=== PATIENT | male | born 1985 | race Hispanic/Latino ===

== ENCOUNTER 2023-05-15 15:23 | Emergency (ER) | payer OTHER ==
--- OUTSIDE RECORDS SUMMARY | 2023-05-15 15:40 | XMS REPORT | Continuity of Care Document ---
:1985 Author Organization [facility] t Address [address] [facility] [address] [place] [id number] Care Team Providers Name Role [facility], [facility] Primary Care Physician Unavailable Danyell Ledesma MD Attending Clinician DANYELL LEDESMA Attending Clinician Unavailable DANYELL LEDESMA Attending Clinician Unavailable MARTIR WILLS Attending Clinician Unavailable Lab, Web Sleep Attending Clinician Unavailable Martir Wills MD Attending Clinician Doctor Unassigned, [place] Attending Clinician Unavailable ELLIOTT OCHOA Attending Clinician Unavailable Payers Payer Name Policy Type Policy Number Effective Date Expiration Date [facility] [id number] 2012 2023 00:00:00 00:00:00 Problems This patient has no known problems. Allergies, Adverse Reactions, Alerts Allergy Allergy Status Severity Reaction(s) Onset Inactive Treating Comm ents Source Name Type Date Date Clinician NO KNOWN Drug Active Univers ALLERGIE Class ity of S [facility] Social History Social Habit Start Date Stop Date Quantity Comments Source Gender identity Universit y [facility] Sexual orientation [facility] Exposure to 2022-10-01 2022-10-11 Not sure University of SARS-CoV-2 (event) 00:00:00 10:40:00 [facility] Tobacco use and 2021-11-21 2021-11-21 Smokeless [facility] exposure 00:00:00 00:00:00 tobacco non-user Hospital Alcohol intake 2021-11-21 2021-11-21 Current drinker [facility] 00:00:00 00:00:00 of alcohol Hospital (finding) History of Social 2021-11-21 2021-11-[address] function 00:00:00 00:00:00 Hospital Sex Assigned At [birth year] [facility] 00:00:00 [facility]:00:00 Hospital Smoking Status Start Date Stop Date Source Tobacco smoking consumption [facility] unknown Branch Never smoked [facility] Medications Ordered Filled Start Stop Current Ordering Indication Dosage Frequency Signature Comments Components Source Medication Medication Date Date Medication? Clinician (SIG) Name Name escitalopra Yes 10mg 1 tablet. U nivers m oxalate 9-11 ity of 10 mg 00:00: [place] tablet 00 Medical Branch escitalopra 0 Yes 10mg 1 tablet. U nivers m oxalate 9-11 ity of 10 mg 00:00: [place] tablet 00 Medical Branch escitalopra Yes 10mg 1 tablet. U nivers m oxalate 9-11 ity of 10 mg 00:00: [place] tablet 00 Medical Branch Diclofenac 0 Yes APPLY Univer s Sodium 1 % 3-28 MODERATE ity o f gel 00:00: AMOUNT TO THE SKIN Medical TWICE A Branch DAY FOR PAIN AND INFLAMMATI ON Diclofenac Yes APPLY Univer s Sodium 1 % 3-28 MODERATE ity o f gel 00:00: AMOUNT TO THE SKIN Medical TWICE A Branch DAY FOR PAIN AND INFLAMMATI ON Diclofenac 0 Yes APPLY Univer s Sodium 1 % 3-28 MODERATE ity o f gel 00:00: AMOUNT TO [place] THE SKIN Medical TWICE A Branch DAY FOR PAIN AND INFLAMMATI ON Diclofenac 0 Yes APPLY Univer s Sodium 1 % 3-28 MODERATE ity o f gel 00:00: AMOUNT TO [place] THE SKIN Medical TWICE A Branch DAY FOR PAIN AND INFLAMMATI ON Diclofenac 0 Yes APPLY Univer s Sodium 1 % 3-28 MODERATE ity o f gel 00:00: AMOUNT TO [place] THE SKIN Medical TWICE A Branch DAY FOR PAIN AND INFLAMMATI ON Diclofenac 0 Yes APPLY Univer s Sodium 1 % 3-28 MODERATE ity o f gel 00:00: AMOUNT TO THE SKIN Medical TWICE A Branch DAY FOR PAIN AND INFLAMMATI ON Diclofenac 2023-0 Yes APPLY Univer s Sodium 1 % 3-28 MODERATE ity o f gel 00:00: AMOUNT TO THE SKIN Medical TWICE A Branch DAY FOR PAIN AND INFLAMMATI ON Diclofenac 2023-0 Yes APPLY Univer s Sodium 1 % 3-28 MODERATE ity o f gel 00:00: AMOUNT TO THE SKIN Medical TWICE A Branch DAY FOR PAIN AND INFLAMMATI ON Diclofenac 3-0 Yes APPLY Univer s Sodium 1 % 3-28 MODERATE ity o f gel 00:00: AMOUNT TO THE SKIN Medical TWICE A Branch DAY FOR PAIN AND INFLAMMATI ON Diclofenac 3-0 Yes APPLY Univer s Sodium 1 % 3-28 MODERATE ity o f gel 00:00: AMOUNT TO [place] THE SKIN Medical TWICE A Branch DAY FOR PAIN AND INFLAMMATI ON Diclofenac 2023-0 Yes APPLY Univer s Sodium 1 % 3-28 MODERATE ity o f gel 00:00: AMOUNT TO [place] THE SKIN Medical TWICE A Branch DAY FOR PAIN AND INFLAMMATI ON Diclofenac 2023-0 Yes APPLY Univer s Sodium 1 % 3-28 MODERATE ity o f gel 00:00: AMOUNT TO [place] THE SKIN Medical TWICE A Branch DAY FOR PAIN AND INFLAMMATI ON Diclofenac 3-0 Yes APPLY Univer s Sodium 1 % 3-28 MODERATE ity o f gel 00:00: AMOUNT TO [place] THE SKIN Medical TWICE A Branch DAY FOR PAIN AND INFLAMMATI ON Diclofenac 2023-0 Yes APPLY Univer s Sodium 1 % 3-28 MODERATE ity o f gel 00:00: AMOUNT TO [place] THE SKIN Medical TWICE A Branch DAY FOR PAIN AND INFLAMMATI ON Diclofenac 2023-0 Yes APPLY Univer s Sodium 1 % 3-28 MODERATE ity o f gel 00:00: AMOUNT TO [place] THE SKIN Medical TWICE A Branch DAY FOR PAIN AND INFLAMMATI ON Diclofenac 2023-0 Yes APPLY Univer s Sodium 1 % 3-28 MODERATE ity o f gel 00:00: AMOUNT TO [place] THE SKIN Medical TWICE A Branch DAY FOR PAIN AND INFLAMMATI ON Diclofenac 2023-0 Yes APPLY Univer s Sodium 1 % 3-28 MODERATE ity o f gel 00:00: AMOUNT TO [place] THE SKIN Medical TWICE A Branch DAY FOR PAIN AND INFLAMMATI ON vitamin 2023-0 Yes 250ug 1 tablet. Univ ers B-12 250 3-23 ity of mcg tablet 00:00: [place] 00 Medical Branch Cholecalcif 2023-0 Yes 50ug 50 mcg. Uni vers ina, 3-23 ity of Vitamin D3, 00:00: [place] 50 mcg 00 Medical (2,000 Branch unit) tablet hydrOXYzine 2023-0 Yes 25mg 1 tablet. U nivers 25 mg 3-23 ity of tablet 00:00: [place] 00 Medical Branch vitamin 2023-0 Yes 250ug 1 tablet. [facility] ers B-12 250 3-23 ity of mcg tablet 00:00: [place] 00 Medical Branch Cholecalcif 2023-0 Yes 50ug 50 mcg. Uni vers ina, 3-23 ity of Vitamin D3, 00:00: [place] 50 mcg 00 Medical (2,000 Branch unit) tablet hydrOXYzine 2023-0 Yes 25mg 1 tablet. U nivers 25 mg 3-23 ity of tablet 00:00: [place] 00 Medical Branch vitamin 2023-0 Yes 250ug 1 tablet. [facility] B-12 250 3-23 ity of mcg tablet 00:00: [place] 00 Medical Branch Cholecalcif 2023-0 Yes 50ug 50 mcg. Uni vers ina, 3-23 ity of Vitamin D3, 00:00: [place] 50 mcg 00 Medical (2,000 Branch unit) tablet hydrOXYzine 2023-0 Yes 25mg 1 tablet. U nivers 25 mg 3-23 ity of tablet 00:00: [place] 00 Medical Branch vitamin 2023-0 Yes 250ug 1 tablet. [facility] ers B-12 250 3-23 ity of mcg tablet 00:00: [place] 00 Medical Branch Cholecalcif 2023-0 Yes 50ug 50 mcg. Uni vers ina, 3-23 ity of Vitamin D3, 00:00: [place] 50 mcg 00 Medical (2,000 Branch unit) tablet hydrOXYzine 2023-0 Yes 25mg 1 tablet. U nivers 25 mg 3-23 ity of tablet 00:00: [place] 00 Medical Branch vitamin 2023-0 Yes 250ug 1 tablet. [facility] ers B-12 250 3-23 ity of mcg tablet 00:00: [place] 00 Medical Branch Cholecalcif 2023-0 Yes 50ug 50 mcg. Uni vers ina, 3-23 ity of Vitamin D3, 00:00: [place] 50 mcg 00 Medical (2,000 Branch unit) tablet Cholecalcif 2023-0 Yes 50ug 50 mcg. Uni vers ina, 3-23 ity of Vitamin D3, 00:00: [place] 50 mcg 00 Medical (2,000 Branch unit) tablet hydrOXYzine 2023-0 Yes 25mg 1 tablet. U nivers 25 mg 3-23 ity of tablet 00:00: [place] 00 Medical Branch hydrOXYzine 2023-0 Yes 25mg 1 tablet. U nivers 25 mg 3-23 ity of tablet 00:00: [place] 00 Medical Branch vitamin 2023-0 Yes 250ug 1 tablet. [facility] ers B-12 250 3-23 ity of mcg tablet 00:00: [place] 00 Medical Branch Cholecalcif 2023-0 Yes 50ug 50 mcg. Uni vers ina, 3-23 ity of Vitamin D3, 00:00: [place] 50 mcg 00 Medical (2,000 Branch unit) tablet hydrOXYzine 2023-0 Yes 25mg 1 tablet. U nivers 25 mg 3-23 ity of tablet 00:00: [place] 00 Medical Branch vitamin 2023-0 Yes 250ug 1 tablet. [facility] ers B-12 250 3-23 ity of mcg tablet 00:00: [place] 00 Medical Branch Cholecalcif 2023-0 Yes 50ug 50 mcg. Uni vers ina, 3-23 ity of Vitamin D3, 00:00: [place] 50 mcg 00 Medical (2,000 Branch unit) tablet hydrOXYzine 2023-0 Yes 25mg 1 tablet. U nivers 25 mg 3-23 ity of tablet 00:00: [place] 00 Medical Branch vitamin 2023-0 Yes 250ug 1 tablet. [facility] ers B-12 250 3-23 ity of mcg tablet 00:00: [place] 00 Medical Branch vitamin 2023-0 Yes 250ug 1 tablet. Univ ers B-12 250 3-23 ity of mcg tablet 00:00: [place] 00 Medical Branch Cholecalcif 2023-0 Yes 50ug 50 mcg. Uni vers ina, 3-23 ity of Vitamin D3, 00:00: [place] 50 mcg 00 Medical (2,000 Branch unit) tablet hydrOXYzine 2023-0 Yes 25mg 1 tablet. U nivers 25 mg 3-23 ity of tablet 00:00: [place] 00 Medical Branch vitamin 2023-0 Yes 250ug 1 tablet. Univ ers B-12 250 3-23 ity of mcg tablet 00:00: [place] 00 Medical Branch Cholecalcif 2023-0 Yes 50ug 50 mcg. Uni vers ina, 3-23 ity of Vitamin D3, 00:00: [place] 50 mcg 00 Medical (2,000 Branch unit) tablet hydrOXYzine 2023-0 Yes 25mg 1 tablet. U nivers 25 mg 3-23 ity of tablet 00:00: [place] 00 Medical Branch vitamin 2023-0 Yes 250ug 1 tablet. Univ ers B-12 250 3-23 ity of mcg tablet 00:00: [place] 00 Medical Branch Cholecalcif 2023-0 Yes 50ug 50 mcg. Uni vers ina, 3-23 ity of Vitamin D3, 00:00: [place] 50 mcg 00 Medical (2,000 Branch unit) tablet hydrOXYzine 2023-0 Yes 25mg 1 tablet. U nivers 25 mg 3-23 ity of tablet 00:00: [place] 00 Medical Branch vitamin 2023-0 Yes 250ug 1 tablet. Univ ers B-12 250 3-23 ity of mcg tablet 00:00: [place] 00 Medical Branch Cholecalcif 2023-0 Yes 50ug 50 mcg. Uni vers ina, 3-23 ity of Vitamin D3, 00:00: [place] 50 mcg 00 Medical (2,000 Branch unit) tablet hydrOXYzine 2023-0 Yes 25mg 1 tablet. U nivers 25 mg 3-23 ity of tablet 00:00: [place] 00 Medical Branch vitamin 2023-0 Yes 250ug 1 tablet. Univ ers B-12 250 3-23 ity of mcg tablet 00:00: [place] 00 Medical Branch Cholecalcif 2023-0 Yes 50ug 50 mcg. Uni vers ina, 3-23 ity of Vitamin D3, 00:00: [place] 50 mcg 00 Medical (2,000 Branch unit) tablet hydrOXYzine 2023-0 Yes 25mg 1 tablet. U nivers 25 mg 3-23 ity of tablet 00:00: [place] 00 Medical Branch vitamin 2023-0 Yes 250ug 1 tablet. Univ ers B-12 250 3-23 ity of mcg tablet 00:00: [place] 00 Medical Branch Cholecalcif 2023-0 Yes 50ug 50 mcg. Uni vers ina, 3-23 ity of Vitamin D3, 00:00: [place] 50 mcg 00 Medical (2,000 Branch unit) tablet hydrOXYzine 2023-0 Yes 25mg 1 tablet. U nivers 25 mg 3-23 ity of tablet 00:00: [place] 00 Medical Branch vitamin 2023-0 Yes 250ug 1 tablet. [facility] ers B-12 250 3-23 ity of mcg tablet 00:00: [place] 00 Medical Branch Cholecalcif 2023-0 Yes 50ug 50 mcg. Uni vers ina, 3-23 ity of Vitamin D3, 00:00: [place] 50 mcg 00 Medical (2,000 Branch unit) tablet hydrOXYzine 2023-0 Yes 25mg 1 tablet. U nivers 25 mg 3-23 ity of tablet 00:00: [place] 00 Medical Branch vitamin 2023-0 Yes 250ug 1 tablet. [facility] ers B-12 250 3-23 ity of mcg tablet 00:00: [place] 00 Medical Branch Cholecalcif 2023-0 Yes 50ug 50 mcg. Uni vers ina, 3-23 ity of Vitamin D3, 00:00: [place] 50 mcg 00 Medical (2,000 Branch unit) tablet hydrOXYzine 2023-0 Yes 25mg 1 tablet. U nivers 25 mg 3-23 ity of tablet 00:00: [place] 00 Medical Branch vitamin 2023-0 Yes 250ug 1 tablet. [facility] ers B-12 250 3-23 ity of mcg tablet 00:00: [place] 00 Medical Branch Cholecalcif 2023-0 Yes 50ug 50 mcg. Uni vers ina, 3-23 ity of Vitamin D3, 00:00: [place] 50 mcg 00 Medical (2,000 Branch unit) tablet hydrOXYzine 2023-0 Yes 25mg 1 tablet. U nivers 25 mg 3-23 ity of tablet 00:00: [place] 00 Medical Branch ergocalcife 2023-0 Yes 1250ug 1,250 mcg. [facility] rol, 2- ity of vitamin d2, 00:00: [place] 1,250 mcg 00 Medical (50,000 Branch unit) capsule ergocalcife 2023-0 Yes 1250ug 1,250 mcg. [facility] rol, 2- ity of vitamin d2, 00:00: [place] 1,250 mcg 00 Medical (50,000 Branch unit) capsule ergocalcife 2023-0 Yes 1250ug 1,250 mcg. [facility] rol, 2- ity of vitamin d2, 00:00: [place] 1,250 mcg 00 Medical (50,000 Branch unit) capsule ergocalcife 2023-0 Yes 1250ug 1,250 mcg. Univers [facility], 2- ity of vitamin d2, 00:00: [place] 1,250 mcg 00 Medical (50,000 Branch unit) capsule ergocalcife 2023-0 Yes 1250ug 1,250 mcg. Univers rol, 2- ity of vitamin d2, 00:00: [place] 1,250 mcg 00 Medical (50,000 Branch unit) capsule ergocalcife 2023-0 Yes 1250ug 1,250 mcg. Univers rol, 2- ity of vitamin d2, 00:00: [place] 1,250 mcg 00 Medical (50,000 Branch unit) capsule ergocalcife 2023-0 Yes 1250ug 1,250 mcg. [facility], 2 ity of vitamin d2, 00:00: [place] 1,250 mcg 00 Medical (50,000 Branch unit) capsule ergocalcife 2023-0 Yes 1250ug 1,250 mcg. [facility], 2 ity of vitamin d2, 00:00: [place] 1,250 mcg 00 Medical (50,000 Branch unit) capsule ergocalcife 2023-0 Yes 1250ug 1,250 mcg. [facility], 2 ity of vitamin d2, 00:00: [place] 1,250 mcg 00 Medical (50,000 Branch unit) capsule ergocalcife 2023-0 Yes 1250ug 1,250 mcg. [facility], 2 ity of vitamin d2, 00:00: [place] 1,250 mcg 00 Medical (50,000 Branch unit) capsule ergocalcife 2023-0 Yes 1250ug 1,250 mcg. [facility], 2 ity of vitamin d2, 00:00: [place] 1,250 mcg 00 Medical (50,000 Branch unit) capsule ergocalcife 2023-0 Yes 1250ug 1,250 mcg. [facility], 2- ity of vitamin d2, 00:00: [place] 1,250 mcg 00 Medical (50,000 Branch unit) capsule ergocalcife 2023-0 Yes 1250ug 1,250 mcg. [facility], 2- ity of vitamin d2, 00:00: [place] 1,250 mcg 00 Medical (50,000 Branch unit) capsule ergocalcife 2023-0 Yes 1250ug 1,250 mcg. [facility], 08-10 ity of vitamin d2, 00:00: [place] 1,250 mcg 00 Medical (50,000 Branch unit) capsule ergocalcife 3-0 Yes 1250ug 1,250 mcg. [facility], 08-10 ity of vitamin d2, 00:00: [place] 1,250 mcg 00 Medical (50,000 Branch unit) capsule ergocalcife 3-0 Yes 1250ug 1,250 mcg. [facility], 08-10 ity of vitamin d2, 00:00: [place] 1,250 mcg 00 Medical (50,000 Branch unit) capsule ergocalcife 3-0 Yes 1250ug 1,250 mcg. [facility], 08-10 ity of vitamin d2, 00:00: [place] 1,250 mcg 00 Medical (50,000 Branch unit) capsule Vital Signs Vital Name Observation Time Observation Value Comments Source Systolic blood 2023-04-11 18:23:00 127 mm[Hg] Univer [facility]ity of [facility] Diastolic blood 2023-04-11 18:23:00 87 mm[Hg] [facility] 2023-04-11 18:16:00 93 /min [facility] Body temperature 2023-04-11 18:16:00 36.89 Trish [facility] Respiratory rate 2023-04-11 18:16:00 17 /min [facility] Body height 2023-04-11 18:16:00 180.3 cm [facility] Body weight 2023-04-11 18:16:00 107.548 kg [facility] BMI 2023-04-11 18:16:00 33.07 kg/m2 [facility] Oxygen saturation in 2023-04-11 18:16:00 97 /min [facility] Arterial blood by [facility] Pulse oximetry [place] Systolic blood 2023-02-07 18:21:00 134 mm[Hg] Univer sity of [facility] Diastolic blood 2023-02-07 18:21:00 94 mm[Hg] Unive rsity [facility] [place] [facility] Heart rate 2023-02-07 18:15:00 79 /min [facility] Body temperature 2023-02-07 18:15:00 36.72 Trish Univ [facility] [place] [facility] Respiratory rate 2023-02-07 18:15:00 17 /min Univ ers[facility] [place] [facility] Body height 2023-02-07 18:15:00 180.3 cm [facility] [place] [facility] Body weight 2023-02-07 18:15:00 108.5 kg [facility] [place] [facility] BMI 2023-02-07 18:15:00 33.36 kg/m2 [facility] [place] [facility] Oxygen saturation in 2023-02-07 18:15:00 97 /min University of Arterial blood by [facility] Pulse oximetry Branch Systolic blood 2023-01-19 16:10:00 124 mm[Hg] Univer sity of pressure [place] [facility] Diastolic blood 2023-01-19 16:10:00 87 mm[Hg] Unive rsity of pressure [place] [facility] Heart rate 2023-01-19 16:10:00 94 /min [facility] [place] [facility] Body temperature 2023-01-19 16:06:00 37.11 Trish Univ ers[facility] [place] [facility] Respiratory rate 2023-01-19 16:06:00 18 /min Univ [facility] [place] [facility] Body height 2023-01-19 16:06:00 180.3 cm [facility] [place] [facility] Body weight 2023-01-19 16:06:00 109.408 kg [facility] [place] [facility] BMI 2023-01-19 16:06:00 33.64 kg/m2 [facility] [place] [facility] Oxygen saturation in 2023-01-19 16:06:00 96 /min University of Arterial blood by [facility] Pulse oximetry Branch Systolic blood 2022-10-11 15:51:00 132 mm[Hg] Univer sity of pressure [place] [facility] Diastolic blood 2022-10-11 15:51:00 91 mm[Hg] Unive rsity of pressure [place] [facility] Heart rate 2022-10-11 15:51:00 86 /min [facility] [place] [facility] Body temperature 2022-10-11 15:44:00 36.83 Trish [facility] [place] [facility] Respiratory rate 2022-10-11 15:44:00 17 /min [facility] [place] [facility] Body height 2022-10-11 15:44:00 180.3 cm [facility] Body weight 2022-10-11 15:44:00 108.274 kg [facility] BMI 2022-10-11 15:44:00 33.29 kg/m2 [facility] Oxygen saturation in 2022-10-11 15:44:00 95 /min [facility] blood by [facility] Pulse oximetry Branch Procedures Procedure Date / Time Performing Clinician Source Performed SLEEP LAB RESULTS 2023-03-20 05:01:00 Danyell Ledesma [facility] SLEEP LAB RESULTS 2023-01-23 05:01:[address] [facility] SLEEP LAB RESULTS 2022-12-29 05:01:00 [facility] SLEEP STUDY DATA REPORT 2022-12-29 05:01:00 Doctor Unassigned, N o [facility] AUTHORIZATION FOR 2022-11-14 05:01:00 Doctor Unassigned, No [facility] ASSIGNMENT OF BENEFITS 2022-10-11 15:41:08 Doctor Unassigned, No [facility] Encounters Start End Encounter Admission Attending Care Care Encounter Source Date/Time Date/Time Type Type Clinicians Facility Department ID 2023-05-17 2023-05-[address] [facility] [id number] Univers 10:00:00 10:00:00 ity [facility] 2023-04-11 2023-04-11 Office Callie MIFRANDY [id number] Univers 13:30:00 14:00:00 Visit Danyell Dumont MULTISPEC [id number] itponce [facility] [id number] [facility] [phone] Li joiner AND REGINAL[facility] 0[facility] 2023-04-11 2023-04-11 Outpatient [address] DANYELL LEDESMA [facility] [id number] Univers 13:30:00 13:30:00 DANYELL LEDESMA [facility] 2023-03-20 2023-03-21 [id number] Univers 20:00:00 07:46:35 MARTIR castellanos [facility] 2023-03-20 2023-03-20 [facility], Web Sleep [facility] [id number]. [id number] Univers 20:00:00 22:30:00 Visit Martir Wills CLEAR [id number] ity [id number] [id number] Me dical Y [address] [place] 2023-03-20 2023-03-20 [facility] [id number] Univers 00:00:00 00:00:00 Only Strahil T [place] [id number] [id number] [id number] Pa dical NAL 5 [facility] 2023-02-07 2023-02-07 Office Callie [facility] [id number] Univers 13:30:00 14:00:00 Visit Danyell Dumont MULTISPEC [id number] [id number] [phone] Li Salguero [address] [place] [facility] 2023-02-07 2023-02-07 Outpatient R DANYELL LEDESMA [facility] [id number] Univers 13:30:00 13:30:00 DANYELL LEDESMA itponce [facility] 2023-01-23 2023-01-23 Tariff Counsel Lab, Web Sleep [facility] 1.2.840. [id number] Univers 11:30:00 11:30:00 Visit Martir Wills CLEAR [id number] [id number] [id number] Pa dical Y [address] [place] 2023-01-23 2023-01-[address] [facility] [id number] Univers 11:30:00 11:09:44 MARTIR castellanos [facility] 2023-01-23 2023-01-23 [facility] [id number] Univers 00:00:00 00:00:00 Only Strahil T [place] [id number] it[id number] [id number] Pa dical NAL 085 [facility] 2023-01-19 2023-01-19 Office Callie [facility] [id number] Univers 11:00:00 11:30:00 Visit Danyell Dumont MULTISPEC [id number] [id number] [id number] Li joiner [employer]GINAL[employer] [address] [place] [facility] 2023-01-19 2023-01-19 Outpatient R DANYELL LEDES[facility] [id number] Univers 11:00:00 11:00:00 DANYELL LEDESMA [facility] 2022-12-29 2022-12-[address] [facility] [id number] Univers 20:00:00 07:24:53 MARTIR castellanos [facility] 2022-12-29 2022-12-29 Tariff Counsel Lab, Web Sleep [facility] 1.2.840. 114 [id number] Univers 20:00:00 22:30:00 Visit Martir Wills [id number] [id number] [id number] Pa dical Y 193 Branch 2022-12-29 2022-12-29 Orders Callie [facility] [id number] Univers 00:00:00 00:00:00 Only Strahil T [place] [id number] [id number] [id number] Pa dical NAL 5 [facility] 2022-11-14 2022-11-14 Orders Doctor LAIRD [id number] Univers 00:00:00 00:00:00 Only Unassigned, BERNADET[place] [id number] ity of [place] [facility] [id number] Jerzy as [id number] [facility] 009 Branch 2022-10-11 2022-10-11 Office Callie [facility] [id number] Univers 11:00:00 11:30:00 Visit Danyell REESE [id number] [id number] [id number] [facility] AND REGINALDO 085 Branch [facility] 2022-10-11 2022-10-11 Outpatient R DANYELL LEDES[facility] [id number] Univers 11:00:00 11:16:28 DANYELL LEDESMA ity of [facility] 2022-10-11 2022-10-11 Orders Doctor SISI [id number] [id number] Univers 00:00:00 00:00:00 Only Unassigned, [place] [id number] ity of [place] [facility] [id number] Jerzy as [phone] [place] [address] Branch 2021-11-21 2021-11-21 Emergency [facility] [id number] [place] 00:00:00 00:00:[address] Results This patient has no known results.
[2023-05-15 16:21] LABS: Hematocrit 45.6 % (39.6-49.0); MCV 91.2 fL (80-100); MPV 7.7 fL (7.6-11.3); Platelets 296 thou/uL (152-406)
[2023-05-15 16:34] LABS: Potassium 4.2 mEq/L (3.5-5.1)
--- NOTE | 2023-05-15 17:19 | RAD REPORT ---
EXAM DESCRIPTION: CT - Abdomen Pelvis W Contrast - 05/15/2023 4:03 pm CLINICAL HISTORY: BLUNT TRAUMA COMPARISON: No comparisons TECHNIQUE: Thin cut axial CT imaging of the abdomen and pelvis was performed following intravenous a dministration of 100 mL Isovue 300. Multiplanar reformats were generated and reviewed. All CT scans are performed using dose optimization technique as appropriate and may include automated exposure control or mA/KV adjustment according to patient size. FINDINGS: No suspicious findings in the lung bases. The liver shows diffuse parenchymal hypoattenuation suggesting steatosis. Adrenal glands, spleen, and pancreas show no suspicious findings. Gallbladder and biliary tree are also without suspicious findi ng. Symmetric renal function is seen with no hydronephrosis or suspicious renal mass. Exophytic left lowe r pole 2.7 cm fluid density cyst. No dilated bowel loops or bowel wall thickening. No free air, free fluid or inflammatory stranding. N o hernia, mass or bulky lymphadenopathy. The urinary bladder is without significant finding. No suspicious bony findings. Moderate soft tissue swelling and subcutaneous fat stranding along the left flank. Small hyperdense o void hematoma just overlying the lateral abdominal wall muscles, measuring up to 1.5 cm. IMPRESSION: Soft tissue contusion with a 1.5 cm deep subcutaneous hematoma along the left flank. No acute intra-abdominal process. Diffuse hepatic steatosis.
--- NOTE | 2023-05-15 17:23 | ER ---
Nurse's Notes [facility] Name: Anthony Funez Age: 37 yrs Sex: Male : 1985 Arrival Date: 05/15/2023 Time: 15:23 Bed 12 Private MD: Diagnosis: Abdominal contusion Presentation: 05/15 15:47 Chief complaint: Patient states: last i fell off a stoop, about 8 ft, fell on iw left side , it's extremely bruised and there;s pain , it feels weird when i urinate. 15:47 Acuity: GLENN 3 iw 15:47 Method Of Arrival: Ambulatory iw 15:48 Coronavirus screen: At this time, the client does not indicate any symptoms associated iw with coronavirus-19. Ebola Screen: Patient negative for fever greater than or equal to 101.5 degrees Fahrenheit, and additional compatible Ebola Virus Disease symptoms Patient denies exposure to infectious person. Patient denies travel to an Ebola-affected area in the 21 days before illness onset. No symptoms or risks identified at this time. Initial Sepsis Screen: Does the patient meet any 2 criteria? No. Patient's initial sepsis screen is negative. Does the patient have a suspected source of infection? No. Patient's initial sepsis screen is negative. Risk Assessment: Do you want to hurt yourself or someone else? Patient reports no desire to harm self or others. Onset of symptoms. Historical: - Allergies: 15:48 No Known Allergies; iw Screenin:20 [facility] ED Fall Risk Assessment (Adult) History of falling in the last 3 months, kc6 including since admission Yes- single mechanical fall (1 pt) Confusion or Disorientation No (0 pts) Intoxicated or Sedated No (0 pts) Impaired Gait No (0 pts) Mobility Assist Device Used No (0 pt) Altered Elimination No (0 pt) Score/Fall Risk Level 0 - 2 = Low Risk. Abuse screen: Denies threats or abuse. Denies injuries from another. Nutritional screening: No deficits noted. Tuberculosis screening: No symptoms or risk factors identified. Assessment: 17:00 General: Appears in no apparent distress. comfortable, Behavior is calm, cooperative, kc6 appropriate for age. Pain: Complains of pain in posterior aspect of left lateral abdomen. Neuro: Level of Consciousness is awake, alert, obeys commands, Oriented to person, place, time, situation, Appropriate for age. Cardiovascular: Capillary refill < 3 seconds. Respiratory: Airway is patent Trachea midline Respiratory effort is even, unlabored, Respiratory pattern is regular, symmetrical. Derm: Skin is intact, is healthy with good turgor, Skin is pink, warm \T\ dry. Bruising that is dark purple, on posterior aspect of left lateral abdomen. Vital Signs: 15:48 BP 144 / 108; Pulse 102; Resp 16; Temp 98.2; Pulse Ox 100% on R/A; Weight 107.95 kg; iw Height 5 ft. 11 in. ; Pain 8/10; 15:48 Body Mass Index 33.19 (107.95 kg, 180.34 cm) iw 15:48 Pain Scale: Adult iw ED Course: 15:26 Patient arrived in ED. mg5 15:28 Chastity Santos FNP [facility]. jh7 15:28 Rboert Tafoya MD is Attending Physician. 7 15:48 Triage completed. iw 15:49 Arm band placed on. iw 15:59 CBC w/o diff Sent. iw 15:59 BMP Sent. iw 16:05 CT Abd/Pelvis - IV Contrast Only In Process Unspecified. EDMS 17:20 Patient has correct armband on for positive identification. Bed in low position. Call kc6 light in reach. Side rails up X 1. Client placed on continuous cardiac and pulse oximetry monitoring. NIBP monitoring applied. 17:27 Urinalysis w/ reflexes Sent. kc6 17:49 No provider procedures requiring assistance completed. IV discontinued, intact, kc6 bleeding controlled, No redness/swelling at site. Pressure dressing applied. Administered Medications: 17:27 Drug: Valentine PO 10 mg-325 mg 1 tabs PO once Route: PO; kc6 17:43 Follow up: Response: No adverse reaction iw Medication: 17:49 VIS not applicable for this client. kc6 Outcome: 17:22 Discharge ordered by . 7 17:49 Discharged to home ambulatory, kc6 17:49 Condition: good 17:49 Discharge instructions given to patient, Instructed on discharge instructions, follow up and referral plans. medication usage, Demonstrated understanding of instructions, follow-up care, medications, Prescriptions given X 1, 17:50 Patient left the ED. kc6 Signatures: Dispatcher [employer] EDMS Winnie Avery, RN RN iw Chastity Santos, ROOTER OPERATOR ROOTER OPERATOR jh7 Laura Kumar RN RN kc6 Meghana Rodriguez mg5
--- NOTE | 2023-05-15 17:23 | EDPHYS ---
Physician Documentation [facility] Name: Anthony Funez Age: 37 yrs Sex: Male : 1985 Arrival Date: 05/15/2023 Time: 15:23 Bed 12 Private MD: ED Physician Robert Tafoya HPI: 05/15 15:48 This 37 yrs old Male presents to ER via Ambulatory with complaints of Fall jh7 Injury, Side Pain. 15:48 Details of fall: The patient fell from a height, from a ladder, approximately 8 feet. jh7 Onset: The symptoms/episode began/occurred 4 day(s) ago. Associated injuries: The patient sustained injury to the abdomen, specifically the posterior aspect of left lateral abdomen, Denies head injury, LOC, or being on blood thinners.. Historical: - Allergies: 15:48 No Known Allergies; iw ROS: 15:48 Constitutional: Negative for fever, chills, and weight loss, Eyes: Negative for injury, jh7 pain, redness, and discharge, Neck: Negative for injury, pain, and swelling, Cardiovascular: Negative for chest pain, palpitations, and edema, Respiratory: Negative for shortness of breath, cough, wheezing, and pleuritic chest pain, Back: Negative for injury and pain, MS/Extremity: Negative for injury and deformity, Skin: Negative for injury, rash, and discoloration, Neuro: Negative for headache, weakness, numbness, tingling, and seizure, 15:48 Abdomen/GI: Positive for of the posterior aspect of left lateral abdomen, Ecchymosis, Negative for nausea, vomiting, and diarrhea, constipation, 15:48 : Positive for Strange sensation while urinating, Negative for flank pain, 15:48 All other systems are negative, Exam: 15:48 Constitutional: This is a well developed, well nourished patient who is awake, alert, jh7 and in no acute distress. Head/Face: Normocephalic, atraumatic. Neck: Trachea midline, no thyromegaly or masses palpated, and no cervical lymphadenopathy. Supple, full range of motion without nuchal rigidity, or vertebral point tenderness. No Meningismus. Cardiovascular: Regular rate and rhythm with a normal S1 and S2. No gallops, murmurs, or rubs. Normal PMI, no JVD. No pulse deficits. Respiratory: Lungs have equal breath sounds bilaterally, clear to auscultation and percussion. No rales, rhonchi or wheezes noted. No increased work of breathing, no retractions or nasal flaring. Back: No spinal tenderness. No costovertebral tenderness. Full range of motion. Skin: Warm, dry with normal turgor. Normal color with no rashes, no lesions, and no evidence of cellulitis. MS/ Extremity: Pulses equal, no cyanosis. Neurovascular intact. Full, normal range of motion. Neuro: Awake and alert, GCS 15, oriented to person, place, time, and situation. Motor strength 5/5 in all extremities. Sensory grossly intact. Normal gait. 15:48 Abdomen/GI: Inspection: bruising, posterior aspect of left lateral abdomen, Bowel sounds: normal, Vital Signs: 15:48 BP 144 / 108; Pulse 102; Resp 16; Temp 98.2; Pulse Ox 100% on R/A; Weight 107.95 kg; iw Height 5 ft. 11 in. ; Pain 8/10; 15:48 Body Mass Index 33.19 (107.95 kg, 180.34 cm) iw 15:48 Pain Scale: Adult iw MDM: 15:28 Patient medically screened. [facility] 17:25 Differential diagnosis: contusion, fracture, multiple trauma, Abdominal hematoma, KRISTY. [facility] Data reviewed: vital signs, nurses notes, lab test result(s), radiologic studies, CT scan. I considered the following discharge prescriptions or medication management in the emergency department Medications were administered in the Emergency Department. See MAR. Counseling: I had a detailed discussion with the patient and/or guardian regarding the historical points, exam findings, and any diagnostic results supporting the discharge/admit diagnosis, to return to the emergency department if symptoms worsen or persist or if there are any questions or concerns that arise at home. Special discussion: Advised to apply heat to the affected area to help the hematoma reabsorb.. 05/15 15:39 Order name: BMP; Complete Time: 16:44 [facility] 05/15 15:39 Order name: CBC w/o diff; Complete Time: 16:33 [facility] 05/15 15:39 Order name: Urinalysis w/ reflexes; Complete Time: 18:32 [facility] 05/15 15:39 Order name: CT Abd/Pelvis - IV Contrast Only; Complete Time: 17:21 7 Administered Medications: 17:27 Drug: [place] PO 10 mg-325 mg 1 tabs PO once Route: PO; kc6 17:43 Follow up: Response: No adverse reaction Disposition Summary: 05/15/23 17:22 Discharge Ordered Notes: Location: Home [facility] Problem: new [facility] Symptoms: are unchanged [facility] Condition: Stable [facility] Diagnosis - Abdominal contusion [facility] Followup: [facility] - With: Private Physician - When: 2 - 3 days - Reason: Recheck today's complaints Discharge Instructions: - Discharge Summary Sheet [facility] - Contusion [facility] - Fall Prevention in the Home, Adult [facility] Forms: - Medication Reconciliation Form [facility] - Thank You Letter [facility] - Prescription Opioid Use [facility] - Patient Portal Instructions [facility] - Leadership Thank You Letter [facility] Prescriptions: - Tramadol 50 mg Oral Tablet - take 1 tablet ORAL route every 8 hours as needed; 12 tablet; Refills: 0, jh7 Product Selection Permitted Addendum: 05/19/2023 07:36 Co-signature as Attending Physician, Robert Tafoya MD I reviewed the patient's care r n provided by the Advanced Practice Provider and agree with the diagnosis and treatment plan. Signatures: Dispatcher [employer] Winnie Mosher, Robert Kennedy RN, MD MD rn Hadash, Jennifer, FNP PERSONNEL ADMINISTRATOR [facility] Laura Kumar RN RN kc6
[2023-05-15] MEDS ORDERED: HYDROCODONE/APAP 10/325 TAB ONE (17:36)
[2023-05-15 17:47] LABS: Urine Bacteria None Seen /HPF (<20); Urine Bilirubin NEGATIVE (Negative); Urine Blood Negative (Negative); Urine Clarity Clear (Clear); Urine Color Light-Yellow (Yellow); Urine Glucose NEGATIVE (Negative); Urine Mucus Slight /HPF (None Seen); Urine Protein TRACE (Negative); Urine RBC <5 /HPF (None Seen); Urine Urobilinogen Normal (Normal); Urine pH 5.5 (5.0-7.0)
[2023-05-15 17:48] LABS: Specific Gravity > 1.030 (1.005-1.030)
[2023-05-15 17:55] VITALS: BP 144/108; TEMP 98.2; O2SAT 100
== END 2023-05-15 17:50 | disposition home or self-care (01) ==
LOC: ER 15:23
DX: S30.1XXA Contusion of abdominal wall, initial encounter (principal); W11.XXXA Fall on and from ladder, initial encounter
CPT/HCPCS: 81001; 80048; 36415; 85027; 74177; 99284; Q9967

== ENCOUNTER → 2023-07-03 | Emergency (ER) | payer OTHER ==
[~2023-07-03] MED LIST: ASPIRIN 81 MG CHEWABLE TABLET ONE; DIAZEPAM 5 MG TABLET ONE; hydrOXYzine HCL 25 MG TAB ONE
--- NOTE | 2023-07-03 18:03 | RAD REPORT ---
EXAM DESCRIPTION: [place] Single View07/03/2023 5:51 pm CLINICAL HISTORY: CHEST PAIN COMPARISON: No comparisons TECHNIQUE: Sign report FINDINGS: The lungs are clear. No pneumothorax or effusion. The cardiomediastinal contours are unre markable. IMPRESSION: No acute cardiopulmonary process.
[2023-07-03 21:24] LABS: Absolute Lymphocytes (CBC) 3.3 K/uL (0.7-4.9); Hematocrit 48.5 % (39.6-49.0); Lymphocytes % 24.7 % (15.3-44.8); MPV 7.9 fL (7.6-11.3); Platelets 349 thou/uL (152-406); RBC Red Blood Cell Count 5.33 M/uL (4.33-5.43)
[2023-07-03 21:40] LABS: Potassium 3.9 mEq/L (3.5-5.1); Troponin High Sensitivity 4.2 pg/mL (<58.9)
--- NOTE | 2023-07-04 00:29 | ER ---
Nurse's Notes [facility] Name: Anthony Funez Age: 37 yrs Sex: Male : 1985 Arrival Date: 07/03/2023 Time: 16:35 Bed 12 Private MD: Diagnosis: Chest pain, unspecified;Anxiety disorder, unspecified;Cardiac chest pain in the setting of anxiety attacks Presentation: 07/03 16:41 Chief complaint: EMS states: "HE CALLS WHEN HE HAS ANXIETY BECAUSE HE GETS SCARED". bp Coronavirus screen: At this time, the client does not indicate any symptoms associated with coronavirus-19. Ebola Screen: No symptoms or risks identified at this time. Initial Sepsis Screen: Does the patient meet any 2 criteria? No. Patient's initial sepsis screen is negative. Does the patient have a suspected source of infection? No. Patient's initial sepsis screen is negative. Risk Assessment: Do you want to hurt yourself or someone else? Patient reports no desire to harm self or others. Note PRE-HOSPITAL EKG NORMAL. Onset of symptoms was July 03, 2023. 16:41 Method Of Arrival: EMS: [facility] bp 16:41 Acuity: LGENN 3 bp Triage Assessment: 19:00 General: Appears in no apparent distress. comfortable, Behavior is calm, cooperative. jw7 Pain: Complains of pain in chest Pain radiates to left shoulder and back Pain at worst was 7 out of 10 on a pain scale. Quality of pain is described as aching, sharp, throbbing, Pain began 2-3 days ago. Is episodic. EENT: No deficits noted. No signs and/or symptoms were reported regarding the EENT system. Neuro: Spencer Agitation-Sedation Scale (RASS): 0 - Alert and Calm Level of Consciousness is awake, alert, obeys commands, Oriented to person, place, time, situation. Cardiovascular: Heart tones S1 S2 present Capillary refill < 3 seconds Clubbing of nail beds is absent JVD is absent Patient's skin is warm and dry. Rhythm is sinus rhythm. Respiratory: Airway is patent Trachea midline Respiratory effort is even, unlabored, Respiratory pattern is regular, symmetrical. GI: No deficits noted. No signs and/or symptoms were reported involving the gastrointestinal system. : No deficits noted. No signs and/or symptoms were reported regarding the genitourinary system. Derm: No deficits noted. No signs and/or symptoms reported regarding the dermatologic system. Musculoskeletal: No deficits noted. No signs and/or symptoms reported regarding the musculoskeletal system. Historical: - Allergies: 16:43 No Known Allergies; bp - PMHx: 16:43 Anxiety; Hypercholesterolemia; bp - Immunization history:: Adult Immunizations up to date. - Social history:: Smoking status: unknown. - Family history:: not pertinent. Screenin:00 [facility] ED Fall Risk Assessment (Adult) History of falling in the last 3 months, jw7 including since admission No falls in past 3 months (0 pts) Score/Fall Risk Level 0 - 2 = Low Risk Oriented to surroundings, Maintained a safe environment. Abuse screen: Denies threats or abuse. Denies injuries from another. Nutritional screening: No deficits noted. Tuberculosis screening: No symptoms or risk factors identified. Assessment: 19:15 General: see triage assessment. jw7 20:00 Reassessment: Patient appears in no apparent distress at this time. No changes from 7 previously documented assessment. Patient and/or family updated on plan of care and expected duration. Pain level reassessed. Patient is alert, oriented x 3, equal unlabored respirations, skin warm/dry/pink. 21:00 Pain: Denies pain. jw7 21:15 Reassessment: Patient appears in no apparent distress at this time. No changes from jw7 previously documented assessment. Patient and/or family updated on plan of care and expected duration. Pain level reassessed. Patient is alert, oriented x 3, equal unlabored respirations, skin warm/dry/pink. 22:30 Reassessment: Patient appears in no apparent distress at this time. No changes from jw7 previously documented assessment. Patient and/or family updated on plan of care and expected duration. Pain level reassessed. Patient is alert, oriented x 3, equal unlabored respirations, skin warm/dry/pink. 07/04 00:00 Reassessment: Patient appears in no apparent distress at this time. No changes from jw7 previously documented assessment. Patient and/or family updated on plan of care and expected duration. Pain level reassessed. Patient is alert, oriented x 3, equal unlabored respirations, skin warm/dry/pink. Vital Signs: 07/03 16:41 BP 140 / 95; Pulse 95; Resp 18; Temp 98; Pulse Ox 100% ; bp 21:00 BP 165 / 112; Pulse 87; Resp 21 S; Pulse Ox 98% on R/A; jw7 22:00 BP 150 / 103; Pulse 89; Resp 20 S; Pulse Ox 99% on R/A; jw7 23:00 BP 127 / 94; Pulse 88; Resp 23 S; Pulse Ox 98% on R/A; jw7 07/04 00:44 BP 130 / 90; Pulse 78; Resp 19 S; Pulse Ox 96% on R/A; as6 ED Course: 07/03 16:38 Patient arrived in ED. ts1 16:43 Triage completed. bp 16:43 Arm band placed on. bp 16:49 Jorge Scott is Attending Physician. ci 17:53 XRAY Chest (1 view) In Process Unspecified. EDMS 19:00 Patient has correct armband on for positive identification. Bed in low position. [facility]. Client placed on continuous cardiac and pulse oximetry monitoring. NIBP monitoring applied. 19:10 Eleanor Salazar, RN is Primary Nurse. jw7 21:08 Initial lab(s) drawn, by wa, sent to lab. Inserted saline lock: 20 gauge in right 7 antecubital area, using aseptic technique. Blood collected. Patient maintains SpO2 saturation greater than 95% on room air. 21:15 Attending Physician role handed off by Jorge Scott sp4 21:15 David Gould MD is Attending Physician. sp4 21:22 EKG done, by ED staff, reviewed by David Gould MD. jw7 07/04 00:28 Corey Childress MD is Referral Physician. sp4 00:45 Provided Education on: follow up. as6 00:45 No provider procedures requiring assistance completed. IV discontinued, intact, as6 bleeding controlled, No redness/swelling at site. Pressure dressing applied. Administered Medications: 07/03 21:08 Not Given (Physician Discretion): aspirinchewable tablet 324 mg PO once; 81 mg tablets jw7 x 4 21:08 Drug: hydrOXYzine PO 50 mg PO once Route: PO; jw7 23:01 Follow up: Response: No adverse reaction jw7 22:10 Drug: Diazepam PO 10 mg PO once Route: PO; jw7 23:01 Follow up: Response: No adverse reaction jw7 Medication: 07/04 00:45 VIS not applicable for this client. as6 Outcome: 00:29 Discharge ordered by . sp4 00:45 Discharged to home ambulatory, with significant other, as6 00:45 Condition: stable 00:45 Discharge instructions given to patient, Instructed on discharge instructions, follow up and referral plans. medication usage, Demonstrated understanding of instructions, follow-up care, medications, Prescriptions given X 1, 00:46 Patient left the ED. as6 Signatures: Dispatcher [employer] EDMS Evan Hernandez RN RN bp Clemente Freeman RN RN as6 Eleanor Salazar RN RN jw7 David Gould MD MD sp4 Bella Thompson PAS PAS 1 Jorge Scott Corrections: (The following items were deleted from the chart) 07/03 16:43 16:38 Chief complaint: bp bp
--- NOTE | 2023-07-04 00:30 | EDPHYS ---
Physician Documentation [facility] Name: Anthony Funez Age: 37 yrs Sex: Male : 1985 Arrival Date: 07/03/2023 Time: 16:35 Bed 12 Private MD: ED Physician David Gould HPI: 07/03 18:28 This 37 yrs old Male presents to ER via EMS with complaints of Chest Pain. ci 18:28 Patient is a 37-year-old male with PMH hyperlipidemia, anxiety who presents to the ED ci with midsternal chest pain that began this morning. Pain feels like someone punched him in the chest, intermittently sharp and feels like tightness. Patient initially thought symptoms were related to his anxiety but symptoms have persisted. Endorses nausea with 1 episode of vomiting. Denies prolonged immobility, recent surgery, history of PE/DVT. Patient denies family history of [place]. He smokes occasionally. Historical: - Allergies: 16:43 No Known Allergies; bp - PMHx: 16:43 Anxiety; Hypercholesterolemia; bp - Immunization history:: Adult Immunizations up to date. - Social history:: Smoking status: unknown. - Family history:: not pertinent. ROS: 18:28 Constitutional: Negative for fever, chills, and weight loss, ci 18:28 Cardiovascular: Positive for chest pain, 18:28 Abdomen/GI: Positive for nausea and vomiting, Exam: 18:28 Constitutional: This is a well developed, well nourished patient who is awake, alert, ci and in no acute distress. Head/Face: Normocephalic, atraumatic. Eyes: Pupils equal round and reactive to light, extra-ocular motions intact. Lids and lashes normal. Conjunctiva and sclera are non-icteric and not injected. Cornea within normal limits. Periorbital areas with no swelling, redness, or edema. ENT: Nares patent. No nasal discharge, no septal abnormalities noted. Tympanic membranes are normal and external auditory canals are clear. Oropharynx with no redness, swelling, or masses, exudates, or evidence of obstruction, uvula midline. Mucous membranes moist. Neck: Trachea midline, no thyromegaly or masses palpated, and no cervical lymphadenopathy. Supple, full range of motion without nuchal rigidity, or vertebral point tenderness. No Meningismus. Chest/axilla: Normal chest wall appearance and motion. Nontender with no deformity. No lesions are appreciated. Cardiovascular: Regular rate and rhythm with a normal S1 and S2. No gallops, murmurs, or rubs. Normal PMI, no JVD. No pulse deficits. Respiratory: Lungs have equal breath sounds bilaterally, clear to auscultation and percussion. No rales, rhonchi or wheezes noted. No increased work of breathing, no retractions or nasal flaring. Abdomen/GI: Soft, non-tender, with normal bowel sounds. No distension or tympany. No guarding or rebound. No evidence of tenderness throughout. Back: No spinal tenderness. No costovertebral tenderness. Full range of motion. Skin: Warm, dry with normal turgor. Normal color with no rashes, no lesions, and no evidence of cellulitis. MS/ Extremity: Pulses equal, no cyanosis. Neurovascular intact. Full, normal range of motion. Neuro: Awake and alert, GCS 15, oriented to person, place, time, and situation. Cranial nerves II-XII grossly intact. Motor strength 5/5 in all extremities. Sensory grossly intact. Cerebellar exam normal. Normal gait. Psych: Awake, alert, with orientation to person, place and time. Behavior, mood, and affect are within normal limits. 21:54 ECG was reviewed by the Attending Physician. EKG time 2134 there is sinus rhythm at the sp4 rate of 89, medium marginal first-degree AV block, otherwise normal EKG Vital Signs: 16:41 BP 140 / 95; Pulse 95; Resp 18; Temp 98; Pulse Ox 100% ; bp 21:00 BP 165 / 112; Pulse 87; Resp 21 S; Pulse Ox 98% on R/A; jw7 22:00 BP 150 / 103; Pulse 89; Resp 20 S; Pulse Ox 99% on R/A; jw7 23:00 BP 127 / 94; Pulse 88; Resp 23 S; Pulse Ox 98% on R/A; jw7 07/04 00:44 BP 130 / 90; Pulse 78; Resp 19 S; Pulse Ox 96% on R/A; as6 MDM: 07/03 17:00 Patient medically screened. ci 18:28 Differential diagnosis: abnormal EKG, acute myocardial infarction, pneumonia, ci pneumothorax, pulmonary embolus, stable angina, unstable angina, Anxiety. HEART Score: History: Moderately Suspicious (1), ECG: Normal (0), Age: < or = 45 years (0), Risk Factors: 1 or 2 risk factors (1), Troponin: < or = 1 x Normal Limit (0), Total Score = 2. 18:28 Data reviewed: vital signs, nurses notes, lab test result(s), EKG. Independent ci interpretation of the following test(s) in the Emergency Department EKG: See my EKG interpretation above X-Ray: My interpretation is . Care significantly affected by the following chronic conditions: Hypercholesterolemia. Counseling: I had a detailed discussion with the patient and/or guardian regarding the historical points, exam findings, and any diagnostic results supporting the discharge/admit diagnosis, lab results, radiology results, the need for outpatient follow up, to return to the emergency department if symptoms worsen or persist or if there are any questions or concerns that arise at home. Awaiting: labs results. 20:53 Awaiting: labs results. Transition of care: After a detail discussion of the patient's ci case, care is transferred to David Gould MD. 07/04 00:27 ED course: Repeat troponin is negative. Patient obtained relief from p.o. Valium. sp4 Patient has no sign of exertional chest pain based on the description. No sign of acute coronary syndrome today. Patient although low risk but warrants evaluation by cardiology on outpatient basis in the office. Will refer to Dr. Childress with Cardiology for outpatient follow-up in the next 30 days. Will advise outpatient stress test and echocardiogram. . 07/03 17:39 Order name: Basic Metabolic Panel; Complete Time: 21:42 ci 07/03 17:39 Order name: CBC with Diff; Complete Time: 21:42 ci 07/03 17:39 Order name: Troponin HS; Complete Time: 21:42 ci 07/03 22:24 Order name: Troponin High Sensitivity; Complete Time: 00:25 sp4 07/03 17:39 Order name: XRAY Chest (1 view); Complete Time: 18:19 ci 07/03 17:39 Order name: EKG; Complete Time: 17:40 ci 07/03 17:39 Order name: Cardiac monitoring; Complete Time: 21:08 ci 07/03 17:39 Order name: EKG - Nurse/Tech; Complete Time: 21:22 ci 07/03 17:39 Order name: IV Saline Lock; Complete Time: 21:08 ci 07/03 17:39 Order name: Labs collected and sent; Complete Time: 21:08 ci 07/03 17:39 Order name: O2 Per Protocol; Complete Time: 21:08 ci 07/03 17:39 Order name: O2 Sat Monitoring; Complete Time: 21:08 ci EC/25 21:54 Rate is 89 beats/min. Rhythm is regular, Normal Sinus Rhythm. QRS [place] is Normal. DC sp4 interval is prolonged. QRS interval is normal. QT interval is normal. No Q waves. T waves are Normal. No ST changes noted. Clinical impression: No evidence of ischemia. Interpreted by me. Reviewed by me. Administered Medications: 21:08 Not Given (Physician Discretion): aspirinchewable tablet 324 mg PO once; 81 mg tablets jw7 x 4 21:08 Drug: hydrOXYzine PO 50 mg PO once Route: PO; jw7 23:01 Follow up: Response: No adverse reaction jw7 22:10 Drug: Diazepam PO 10 mg PO once Route: PO; jw7 23:01 Follow up: Response: No adverse reaction jw7 Disposition Summary: 07/04/23 00:29 Discharge Ordered Notes: Location: Home sp4 Problem: new sp4 Symptoms: have improved sp4 Condition: Stable sp4 Diagnosis - Chest pain, unspecified sp4 - Anxiety disorder, unspecified sp4 - Cardiac chest pain in the setting of anxiety attacks sp4 Followup: sp4 - With: Corey Childress MD - When: 7 - 10 days - Reason: Recheck today's complaints Discharge Instructions: - Discharge Summary Sheet sp4 - Managing Anxiety, Adult sp4 Forms: - Patient Portal Instructions sp4 Prescriptions: - Valium 5 mg Oral tablet - take 1 tablet ORAL route once daily As needed As needed only for Anxiety sp4 attacks; 20 tablet; Refills: 0, Product Selection Permitted Signatures: Dispatcher [employer] Evan Mazno, RN RN Eleanor Hardin RN RN jw7 David Gould MD MD sp4 Jorge Scott ci
[2023-07-04 01:54] VITALS: TEMP 98
[2023-07-04 02:00] VITALS: BP 130/90; O2SAT 96
--- NOTE | 2023-07-06 13:29 | EKG ---
Test Date: 2023-07-03 Test Time: 21:14:49 Police Patrol Officer: VANESSA MEASUREMENT RESULTS: Intervals: Rate: 84 MD: 134 QRSD: 80 QT: 368 QTc: 434 Moore: P: 11 MD: 134 QRS: 50 T: 33 INTERPRETIVE STATEMENTS: Normal sinus rhythm Normal ECG No previous ECG available for comparison Electronically Signed On 07-06-23 13:23:07 GYNECOLOGIST by Corey Childress
== END ==
LOC: ER 16:35
DX: F41.9 Anxiety disorder, unspecified (principal); R11.2 Nausea with vomiting, unspecified
CPT/HCPCS: 36415; 71045; 80048; 84484; 85025; 93005; 99285

== ENCOUNTER 2024-07-22 17:02 | Emergency (ER) | payer OTHER ==
[2024-07-22] MEDS ORDERED: ASPIRIN 81 MG CHEWABLE TABLET ONE (17:45)
--- NOTE | 2024-07-22 18:12 | RAD REPORT ---
EXAMINATION: ONE VIEW CHEST XR CLINICAL INDICATION: Male, 38 years old.,CHEST PAIN TECHNIQUE: Frontal chest projection is submitted. Examination is limited by patient positioning and t echnique. COMPARISON: 07/03/2023 FINDINGS: The lungs are well inflated and clear. No pneumothorax or sizable effusion. The heart is normal in s ize. Mediastinal contours are unremarkable. IMPRESSION: No acute intrathoracic abnormalities.
[2024-07-22 18:17] LABS: Absolute Basophils 0.1 K/uL (0-0.5); Absolute Eosinophils 0.1 K/uL (0-0.5); Absolute Lymphocytes (CBC) 1.8 K/uL (0.7-4.9); Absolute Monocytes 0.8 K/uL (0.1-1.3); Absolute Neutrophil 5.2 K/uL (1.8-8.0); Basophils % 0.7 % (0-1.3); Eosinophils % 0.8 % (0-4.4); Hematocrit 45.4 % (39.6-49.0); Hemoglobin 15.6 g/dL (13.6-17.9); Lymphocytes % 22.7 % (15.3-44.8); MCH 31.7 pg (27.0-35.0); MCHC 34.5 g/dL (32.0-36.0); MCV 91.9 fL (80-100); MPV 7.8 fL (7.6-11.3); Monocytes % 10.6 % (3.3-12.3); Neutrophils % 65.2 % (41.7-73.7); Nucleated Red Blood Cells % 0.5 % (0-0); Platelets 278 thou/uL (152-406); RBC Red Blood Cell Count 4.93 M/uL (4.33-5.43); Red Cell Distribution Width 13.3 % (12.1-15.2)
[2024-07-22 18:26] LABS: Protime INR 1.05
[2024-07-22 18:43] LABS: Albumin 3.9 g/dL (3.4-5.0); Albumin/Globulin Ratio 0.9 (1.1-1.8); Anion Gap 11.5 mEq/L (5.0-15.0); Bilirubin Direct 0.2 mg/dL (0-0.2); Bilirubin Indirect, Calculated 0.5 mg/dL (0.2-0.8); Bilirubin Total 0.7 mg/dL (0.2-1.0); Globulin 4.5 g/dL (2.3-3.5); Magnesium 2.1 mg/dL (1.6-2.4); Potassium 3.5 mEq/L (3.5-5.1); Protein, Total 8.4 g/dL (6.4-8.2); Troponin High Sensitivity 6.5 pg/mL (<58.9)
--- NOTE | 2024-07-22 20:15 | RAD REPORT ---
EXAM: CT CHEST, ABDOMEN AND PELVIS WITH CONTRAST CLINICAL INDICATION: Male, 38 years old. chest pain, abdominal pain, elevated LFTs TECHNIQUE: CT chest, abdomen, and pelvis was performed, following the administration of contrast, as per department protocol. Axial, sagittal and coronal reconstructions were obtained. One or more of the following dose reduction techniques were used: Automated exposure control, adjustment of the mA a nd/or kV according to patient size, and/or iterative reconstruction. Unless otherwise specified, incidental findings do not require dedicated imaging follow-up. COMPARISON: 05/15/2023 CT abdomen and pelvis FINDINGS: LUNGS AND AIRWAYS: No evidence of airspace or interstitial process. No nodules. PLEURA: No pleural effusion. No pneumothorax. MEDIASTINUM AND LYMPH NODES: No mediastinal mass or fluid collection. Normal size mediastinal, hilar, and axillary lymph nodes. THORACIC AORTA: Normal caliber and configuration. PULMONARY ARTERIES: Normal caliber. OSSEOUS STRUCTURES AND CHEST WALL: Intact. LIVER: The liver demonstrates significant fatty infiltration. No focal lesion or biliary dilitation s een. BILIARY SYSTEM: No suspicious abnormalities. PANCREAS: No mass, ductal dilation, or leilani-pancreatic fluid. SPLEEN: Normal size. No focal lesion. ADRENALS: Normal; no mass. KIDNEYS AND URETERS: Normal size and contour. No hydronephrosis. Exophytic left lower pole 2.6 cm tra nscortical cyst, stable. URINARY BLADDER: Normal contour. GASTROINTESTINAL TRACT: No bowel obstruction, free air, significant free fluid or abscess. Long segm ents of mild small bowel wall prominence in the left flank, could relate to underdistention or mild enteritis. APPENDIX: No inflammatory changes in region of appendix. LYMPH NODES: No lymphadenopathy. ABDOMINAL AORTA AND OTHER VESSELS: Normal caliber aorta and IVC. MUSCULOSKELETAL: No acute or suspicious osseous abnormality. IMPRESSION: Nonspecific mild small bowel wall prominence involving a long segment in the left flank, could relate to underdistention or mild enteritis. No other acute or significant abnormalities seen in the chest, abdomen or pelvis. Diffuse hepatic parenchymal hypodensity suggesting steatosis.
--- NOTE | 2024-07-22 20:27 | EDPHYS ---
Physician Documentation [facility] Name: Anthony Funez Age: 38 yrs Sex: Male : 1985 Arrival Date: 07/22/2024 Time: 17:02 Bed 17 Private MD: ED Physician Robert Tafoya HPI: 07/22 17:40 This 38 yrs old Male presents to ER via Ambulatory with complaints of Chest sb4 Pain, Breathing Difficulty. 17:42 substernal chest pain that began in the middle of the night associated with shortness sb4 of breath and "numbness" across anterior chest wall. states he slept on and off all day but the pain persisted so he came in for further evaluation. reports a prior episode of this a few weeks ago and was told it was anxiety. he does have a history of anxiety and PTSD, is prescribed lexapro, but hasn't taken it in a few months due to it making him "drowsy" he also reports that he is doing the keto diet. Historical: - Allergies: 17:36 No Known Allergies; cm10 - PMHx: 17:36 Hypercholesterolemia; Anxiety; Hypertensive disorder; cm10 - Immunization history:: Adult Immunizations up to date. - Infectious Disease History:: Denies. - Social history:: Smoking status: Patient denies any tobacco usage or history of. ROS: 17:42 Constitutional: Negative for fever, chills, and weight loss, sb4 17:42 Cardiovascular: Positive for chest pain, 17:42 Respiratory: Positive for shortness of breath, 17:42 All other systems are negative, Exam: 17:42 Head/Face: Normocephalic, atraumatic. Eyes: Extra-ocular motions intact. Periorbital sb4 areas with no swelling, redness, or edema. ENT: Mucous membranes moist. Cardiovascular: Regular rate and rhythm with a normal S1 and S2. Respiratory: No increased work of breathing, no retractions or nasal flaring. Abdomen/GI: Soft, non-tender, no distension. Skin: Warm, dry with normal turgor. Normal color with no rashes, no lesions, and no evidence of cellulitis. 17:42 Constitutional: The patient appears in no acute distress, alert, awake, anxious, Vital Signs: 17:34 BP 167 / 112; Pulse 99; Resp 18; Temp 98.8(TE); Pulse Ox 97% on R/A; Weight 108.86 kg; cm10 Height 5 ft. 11 in. ; Pain 7/10; 18:19 BP 151 / 97; Pulse 91; Resp 18; Pulse Ox 100% on R/A; Pain 6/10; ld1 19:39 BP 138 / 100; Pulse 90; Resp 18; Pulse Ox 97% ; cp4 20:38 BP 141 / 98; Pulse 91; Resp 18; Pulse Ox 99% ; cp4 17:34 Body Mass Index 33.47 (108.86 kg, 180.34 cm) cm10 17:34 Pain Scale: Adult cm10 18:19 Pain Scale: Adult ld1 MDM: 17:32 Medical Screening Exam initiated sb4 18:37 Differential diagnosis: URI, bronchitis, pneumonia anxiety, ACS. Data reviewed: vital sb4 signs, nurses notes, lab test result(s), EKG, radiologic studies. 18:37 Scoring Tools HEART Score: History: ECG: Age: Risk Factors: 1 or 2 risk factors (1), sb4 Troponin: Total Score = 1. 20:26 Counseling: I had a detailed discussion with the patient and/or guardian regarding the sb4 historical points, exam findings, and any diagnostic results supporting the discharge/admit diagnosis, lab results, radiology results, to return to the emergency department if symptoms worsen or persist or if there are any questions or concerns that arise at home. 07/22 17:39 Order name: Basic Metabolic Panel; Complete Time: 18:44 4 07/22 17:39 Order name: CBC with Diff; Complete Time: 18:20 sb4 07/22 17:39 Order name: LFT's; Complete Time: 18:44 sb4 07/22 17:39 Order name: Magnesium; Complete Time: 18:44 sb4 07/22 17:39 Order name: NT PRO-BNP; Complete Time: 18:44 sb4 07/22 17:39 Order name: PT-INR; Complete Time: 18:28 sb4 07/22 17:39 Order name: Troponin HS; Complete Time: 18:44 sb4 07/22 17:39 Order name: XRAY Chest (1 view); Complete Time: 18:14 sb4 07/22 18:45 Order name: CT Chest, Abdomen, Pelvis - W/Contrast; Complete Time: 20:17 sb4 07/22 17:39 Order name: Cardiac monitoring; Complete Time: 18:19 sb4 07/22 17:39 Order name: EKG - Nurse/Tech; Complete Time: 18:19 sb4 07/22 17:39 Order name: IV Saline Lock; Complete Time: 18:19 sb4 07/22 17:39 Order name: Labs collected and sent; Complete Time: 18:19 sb4 07/22 17:39 Order name: O2 Per Protocol; Complete Time: 18:04 sb4 07/22 17:39 Order name: O2 Sat Monitoring; Complete Time: 18:04 sb4 EC:19 Rate is 91 beats/min. Rhythm is regular, Normal Sinus Rhythm. [place] interval is normal at sb4 136 msec. QRS interval is normal at 78 msec. QT interval is normal at 356 msec. No Q waves. T waves are Normal. No ST changes noted. Clinical impression: Normal ECG. Interpreted by me. Reviewed by me. Administered Medications: 18:04 Drug: Aspirin PO Chewable Tablet 324 mg PO once; 81 mg tablets x 4 Route: PO; ld1 18:19 Follow up: Response: No adverse reaction ld1 Disposition: 20:26 Chart complete. Chart complete. sb4 Disposition Summary: 07/22/24 20:26 Discharge Ordered Notes: Location: Home sb4 Problem: new sb4 Symptoms: have improved sb4 Condition: Stable sb4 Diagnosis - Chest pain, unspecified sb4 - Fatty (change of) liver, not elsewhere classified sb4 - Anxiety disorder, unspecified sb4 Followup: sb4 - With: Art Yousif MD - When: As needed - Reason: Recheck today's complaints, Re-evaluation by your physician Discharge Instructions: - Discharge Summary Sheet sb4 - Nonspecific Chest Pain, Adult, [id number] sb4 - Fatty Liver Disease sb4 - Managing Anxiety, Adult sb4 Forms: - Patient Portal Instructions sb4 - Leadership Thank You Letter sb4 Addendum: 07/26/2024 09:39 Co-signature as Attending Physician, Robert Tafoya MD I reviewed the patient's care r n provided by the Advanced Practice Provider and agree with the diagnosis and treatment plan. Signatures: Dispatcher [employer] Robert Le MD MD rn Patti Kapoor RN RN ld1 Honey Rodriguez PA-C PATammiC sb4 Eileen Guerrero, RN RN cm10 Corrections: (The following items were deleted from the chart) 07/22 17:39 17:39 Chest Single View+[email or web address] ordered. EDMS EDMS
--- NOTE | 2024-07-22 20:27 | ER ---
Nurse's Notes [facility] Name: Anthony Funez Age: 38 yrs Sex: Male : 1985 Arrival Date: 07/22/2024 Time: 17:02 Bed 17 Private MD: Diagnosis: Chest pain, unspecified;Fatty (change of) liver, not elsewhere classified;Anxiety disorder, unspecified Presentation: 07/22 17:34 Chief complaint: Patient states: woke up at 0300 this morning with dizziness and chest cm10 pain. pt states that he has been having pain to the center of his chest since this morning. Pt describes the pain as a numbness. Coronavirus screen: Client denies travel out of the [place] in the last 14 days. Ebola Screen: Patient denies travel to an Ebola-affected area in the 21 days before illness onset. 17:34 Method Of Arrival: Ambulatory cm10 17:36 Initial Sepsis Screen: Does the patient meet any 2 criteria? HR > 90 bpm. Does the cm10 patient have a suspected source of infection? No. Patient's initial sepsis screen is negative. Risk Assessment: Do you want to hurt yourself or someone else? Patient reports no desire to harm self or others. Onset of symptoms was July 22, 2024. 17:36 Acuity: GLENN 3 cm10 Triage Assessment: 17:36 General: Appears in no apparent distress. uncomfortable, Behavior is calm, cooperative. cm10 Neuro: No deficits noted. Level of Consciousness is awake, alert, obeys commands, Oriented to person, place, time, situation, Appropriate for age. Respiratory: No deficits noted. Airway is patent Respiratory effort is even, unlabored, Respiratory pattern is regular, symmetrical. Historical: - Allergies: 17:36 No Known Allergies; cm10 - PMHx: 17:36 Hypercholesterolemia; Anxiety; Hypertensive disorder; cm10 - Immunization history:: Adult Immunizations up to date. - Infectious Disease History:: Denies. - Social history:: Smoking status: Patient denies any tobacco usage or history of. Screenin:19 [facility] ED Fall Risk Assessment (Adult) History of falling in the last 3 months, ld1 including since admission No falls in past 3 months (0 pts) Confusion or Disorientation No (0 pts) Intoxicated or Sedated No (0 pts) Impaired Gait No (0 pts) Mobility Assist Device Used No (0 pt) Altered Elimination No (0 pt) Score/Fall Risk Level 0 - 2 = Low Risk Oriented to surroundings, Maintained a safe environment, Educated pt \T\ family on fall prevention, incl call for assistance when getting out of bed, Assessed \T\ reinforced patient's understanding of fall precautions, Provided non-skid footwear, Hourly rounding (assess needs \T\ fall precautionary measures) done, Used ambulatory aids as needed (educated on \T\ assisted with), Used gait belt as appropriate. Abuse screen: Denies threats or abuse. Denies injuries from another. Nutritional screening: No deficits noted. Tuberculosis screening: No symptoms or risk factors identified. Assessment: 18:19 General: Appears in no apparent distress. comfortable, Behavior is calm, cooperative, ld1 appropriate for age. Pain: Complains of pain in chest Pain does not radiate. Pain currently is 8 out of 10 on a pain scale. Quality of pain is described as throbbing, Pain began suddenly, Is continuous. Neuro: Level of Consciousness is awake, alert, obeys commands, Oriented to person, place, time, situation. Cardiovascular: Capillary refill < 3 seconds Patient's skin is warm and dry. Cardiovascular: Reports chest pain. Respiratory: Airway is patent Respiratory effort is even, unlabored. GI: Abdomen is round non-distended. : No signs and/or symptoms were reported regarding the genitourinary system. EENT: No signs and/or symptoms were reported regarding the EENT system. Derm: No signs and/or symptoms reported regarding the dermatologic system. Musculoskeletal: No signs and/or symptoms reported regarding the musculoskeletal system. Vital Signs: 17:34 BP 167 / 112; Pulse 99; Resp 18; Temp 98.8(TE); Pulse Ox 97% on R/A; Weight 108.86 kg; cm10 Height 5 ft. 11 in. ; Pain 7/10; 18:19 BP 151 / 97; Pulse 91; Resp 18; Pulse Ox 100% on R/A; Pain 6/10; ld1 19:39 BP 138 / 100; Pulse 90; Resp 18; Pulse Ox 97% ; cp4 20:38 BP 141 / 98; Pulse 91; Resp 18; Pulse Ox 99% ; cp4 17:34 Body Mass Index 33.47 (108.86 kg, 180.34 cm) cm10 17:34 Pain Scale: Adult cm10 18:19 Pain Scale: Adult ld1 ED Course: 17:08 Patient arrived in ED. ra3 17:09 Honey Rodriguez PA-C is PHCP. sb4 17:09 Robert Tafoya MD is Attending Physician. sb4 17:36 Arm band placed on right wrist. Patient placed in an exam room, on a stretcher. cm10 17:38 Triage completed. cm10 17:42 Patti Kapoor, RN is Primary Nurse. ld1 18:04 XRAY Chest (1 view) In Process Unspecified. EDMS 18:19 Patient has correct armband on for positive identification. Placed in gown. Bed in low ld1 position. Call light in reach. Side rails up X2. bus monitor on. Pulse ox on. NIBP on. Door closed. Noise minimized. Warm blanket given. 18:19 No provider procedures requiring assistance completed. Inserted saline lock: 22 gauge ld1 in right antecubital area, using aseptic technique. Blood collected. Flushed with 10 mL NS. Patient maintains SpO2 saturation greater than 95% on room air. 19:22 CT Chest, Abdomen, Pelvis - W/Contrast In Process Unspecified. EDMS 20:26 Art Yousif MD is Referral Physician. sb4 20:39 Provided Education on: chest pain and fatty liver disease.. cp4 20:39 intact, bleeding controlled, No redness/swelling at site. Pressure dressing applied. cp4 Administered Medications: 18:04 Drug: Aspirin PO Chewable Tablet 324 mg PO once; 81 mg tablets x 4 Route: PO; ld1 18:19 Follow up: Response: No adverse reaction ld1 Medication: 18:19 VIS not applicable for this client. ld1 Outcome: 20:26 Discharge ordered by . sb4 20:39 Discharged to home ambulatory, cp4 20:39 Discharged to home ambulatory, 20:39 Condition: stable 20:39 Discharge instructions given to patient, Instructed on discharge instructions, follow up and referral plans. Demonstrated understanding of instructions, follow-up care, 20:41 Patient left the ED. cp4 Signatures: Dispatcher [employer] EDMS Patti Kapoor RN RN ld1 Honey Rodriguez PA-C PA-C sb4 Eileen Guerrero RN RN cm10 Una Pena cp4 Fabiana Denise ra3 Corrections: (The following items were deleted from the chart) 17:38 17:34 BP 167 / 112; Pulse 99bpm; Resp 18bpm; Pulse Ox 97% RA; Temp 98.8F Temporal; cm10 cm10
[2024-07-23 17:07] VITALS: BP 141/98; TEMP 98.8; O2SAT 99
--- NOTE | 2024-07-25 12:01 | EKG ---
Test Date: 2024-07-22 Test Time: 18:16:09 Agricultural Adviser: Juana LAN[place]STER MEASUREMENT RESULTS: Intervals: Rate: 91 MT: 136 QRSD: 78 QT: 356 QTc: 437 [place]: P: 26 MT: 136 QRS: 26 T: 23 INTERPRETIVE STATEMENTS: Normal sinus rhythm Low voltage QRS Borderline ECG Compared to ECG 07/03/2023 21:14:49 Low QRS voltage now present Electronically Signed On 07-25-24 11:59:10 MECHANICAL FIELD ENGINEER by Colton Epperson
== END 2024-07-22 20:41 | disposition home or self-care (01) ==
LOC: ER 17:02
DX: R07.9 Chest pain, unspecified (principal); F41.9 Anxiety disorder, unspecified; K76.0 Fatty (change of) liver, not elsewhere classified; I10 Essential (primary) hypertension
CPT/HCPCS: 93005; 85025; 80048; 36415; 83735; 85610; 80076; 84484; 83880; 71260; 74177; 71045; 99284; Q9967

== ENCOUNTER 2024-07-25 11:36 | Emergency (ER) | payer OTHER ==
--- NOTE | 2024-07-25 12:40 | ER ---
Nurse's Notes [facility] Name: Anthony Funez Age: 38 yrs Sex: Male : 1985 Arrival Date: 07/25/2024 Time: 11:36 Bed 13 Private MD: Diagnosis: Anxiety disorder, unspecified Presentation: 07/25 11:41 Coronavirus screen: Client denies travel out of the [place] in the last 14 days. At this ll1 time, the client does not indicate any symptoms associated with coronavirus-19. 11:41 Method Of Arrival: Ambulatory ll1 11:41 Acuity: GLENN 3 ll1 11:44 Chief complaint: Patient states: Vomited at work today. Then started to have anxiety, ll1 trouble concentration, numbness R side of neck, bilateral groin pains. States he was here last week with SOB/CP. "I'm just freaking out, I feel like I might pass out." Gait steady. Ebola Screen: Patient denies travel to an Ebola-affected area in the 21 days before illness onset. Initial Sepsis Screen: Does the patient meet any 2 criteria? No. Patient's initial sepsis screen is negative. Does the patient have a suspected source of infection? No. Patient's initial sepsis screen is negative. Risk Assessment: Do you want to hurt yourself or someone else? Patient reports no desire to harm self or others. Onset of symptoms was July 25, 2024. Triage Assessment: 11:43 General: Appears distressed, uncomfortable, Behavior is cooperative, appropriate for ll1 age, agitated, anxious. Pain: Complains of pain in R side of neck Quality of pain is described as aching, numb. Neuro: Reports dizziness, numbness in R neck a syncopal episode weakness. Cardiovascular: Reports fatigue, nausea. GI: Reports nausea, vomiting. Historical: - Allergies: 11:41 No Known Allergies; ll1 - PMHx: 11:41 Anxiety; Hypercholesterolemia; Hypertensive disorder; ll1 - PSHx: 11:41 None; ll1 - Immunization history:: Adult Immunizations up to date. - Infectious Disease History:: Denies. - Social history:: Smoking status: Patient denies any tobacco usage or history of. Screenin:15 [facility] ED Fall Risk Assessment (Adult) History of falling in the last 3 months, kj2 including since admission No falls in past 3 months (0 pts). [facility] ED Fall Risk Assessment (Adult) History of falling in the last 3 months, including since admission No falls in past 3 months (0 pts) Confusion or Disorientation No (0 pts) Intoxicated or Sedated No (0 pts) Impaired Gait No (0 pts) Mobility Assist Device Used No (0 pt) Altered Elimination No (0 pt) Score/Fall Risk Level 0 - 2 = Low Risk Maintained a safe environment, Hourly rounding (assess needs \\T\\ fall precautionary measures) done. Abuse screen: Denies threats or abuse. Denies injuries from another. Nutritional screening: No deficits noted. Tuberculosis screening: No symptoms or risk factors identified. Assessment: 12:15 Reassessment: Patient appears in no apparent distress at this time. Patient and/or kj2 family updated on plan of care and expected duration. Pain level reassessed. Patient is alert, oriented x 3, equal unlabored respirations, skin warm/dry/pink. 12:49 Reassessment: Patient appears in no apparent distress at this time. Patient and/or kj2 family updated on plan of care and expected duration. Pain level reassessed. Patient is alert, oriented x 3, equal unlabored respirations, skin warm/dry/pink. patient will discharge after observation of med administration. 13:46 Reassessment: no reaction to med, MD advised ok to discharge. kj2 Vital Signs: 11:41 BP 155 / 111; Pulse 112; Resp 18; Temp 97.5; Pulse Ox 100% ; Weight 108.86 kg; Height 5 ll1 ft. 11 in. ; Pain 0/10; 12:45 BP 156 / 84; Pulse 90; Resp 18; Temp 98; Pulse Ox 100% ; kj2 13:47 BP 138 / 84; Pulse 88; Resp 20; Temp 98; Pulse Ox 100% on R/A; kj2 11:41 Body Mass Index 33.47 (108.86 kg, 180.34 cm) ll1 11:41 Pain Scale: Adult ll1 ED Course: 11:38 Patient arrived in ED. mr 11:39 Pasquale King MD is Attending Physician. sp3 11:41 Triage completed. ll1 11:43 Arm band placed on Patient placed in an exam room, on a stretcher. ll1 12:44 Chante Gregory, RN is Primary Nurse. kj2 12:47 Patient has correct armband on for positive identification. Bed in low position. Call kj2 light in reach. Adult w/ patient. Provided Education on: call light. 12:48 No provider procedures requiring assistance completed. kj2 13:48 Patient did not have IV access during this emergency room visit. kj2 Administered Medications: 12:57 Drug: LORazepam PO 2 mg PO once Route: PO; kj2 13:48 Follow up: Response: No adverse reaction kj2 Medication: 12:47 VIS not applicable for this client. kj2 Outcome: 12:40 Discharge ordered by . sp3 12:48 Condition: stable kj2 12:48 Discharge instructions given to patient, Instructed on discharge instructions, follow up and referral plans. Demonstrated understanding of instructions, follow-up care, 13:47 Discharged to home ambulatory, kj2 13:48 Patient left the ED. kj2 Signatures: Klaudia Cooper, Reg Reg mr Rachel Pacheco, RN RN ll1 Pasquale King MD MD sp3 Chante Gregory, RN RN kj2
--- NOTE | 2024-07-25 12:40 | EDPHYS ---
Physician Documentation [facility] Name: Anthony Funez Age: 38 yrs Sex: Male : 1985 Arrival Date: 07/25/2024 Time: 11:36 Bed 13 Private MD: ED Physician Pasquale King HPI: 07/25 12:37 This 38 yrs old Male presents to ER via Ambulatory with complaints of Head, sp3 neck pain, Dizziness. 12:37 38-year-old male with history of anxiety with multiple sowed's of similar symptoms in sp3 the past, hypertension, hyperlipidemia, PTSD now reports for anxiety episode at work where he had numbness tingling bilateral upper extremities, chest pain pressure which is now resolved, and near syncope. Patient is had multiple workups in the past for similar symptoms. He is no longer taking his Lexapro he states he is weaned off of it for the last month because "he did not need it anymore". He denies any other somatic symptoms including headache, neck pain, chest pain as opposed to pressure, shortness of breath, abdominal pain, vomiting, diarrhea, full syncope, rash, bleeding, trauma, or any other signs or symptoms on ROS at this time.. Historical: - Allergies: 11:41 No Known Allergies; ll1 - PMHx: 11:41 Anxiety; Hypercholesterolemia; Hypertensive disorder; ll1 - PSHx: 11:41 None; ll1 - Immunization history:: Adult Immunizations up to date. - Infectious Disease History:: Denies. - Social history:: Smoking status: Patient denies any tobacco usage or history of. ROS: 12:38 Constitutional: Negative for fever, chills, and weight loss, Eyes: Negative for injury, sp3 pain, redness, and discharge, Neck: Negative for injury, pain, and swelling, Cardiovascular: Negative for chest pain, palpitations, and edema, Respiratory: Negative for shortness of breath, cough, wheezing, and pleuritic chest pain, Abdomen/GI: Negative for abdominal pain, nausea, vomiting, diarrhea, and constipation, Back: Negative for injury and pain, MS/Extremity: Negative for injury and deformity, Skin: Negative for injury, rash, and discoloration, Neuro: Negative for headache, weakness, numbness, tingling, and seizure, Allergy/Immunology: Negative for hives, rash, and allergies, Endocrine: Negative for neck swelling, polydipsia, polyuria, polyphagia, and marked weight changes, Hematologic/Lymphatic: Negative for swollen nodes, abnormal bleeding, and unusual bruising, 12:38 All other systems are negative, Exam: 12:38 Constitutional: This is a well developed, well nourished patient who is awake, alert, sp3 and in no acute distress. Head/Face: Normocephalic, atraumatic. Eyes: Pupils equal round and reactive to light, extra-ocular motions intact. Lids and lashes normal. Conjunctiva and sclera are non-icteric and not injected. Cornea within normal limits. Periorbital areas with no swelling, redness, or edema. Neck: Trachea midline, no thyromegaly or masses palpated, and no cervical lymphadenopathy. Supple, full range of motion without nuchal rigidity, or vertebral point tenderness. No Meningismus. Chest/axilla: Normal chest wall appearance and motion. Nontender with no deformity. No lesions are appreciated. Respiratory: Lungs have equal breath sounds bilaterally, clear to auscultation and percussion. No rales, rhonchi or wheezes noted. No increased work of breathing, no retractions or nasal flaring. Abdomen/GI: Soft, non-tender, with normal bowel sounds. No distension or tympany. No guarding or rebound. No evidence of tenderness throughout. Back: No spinal tenderness. No costovertebral tenderness. Full range of motion. Skin: Warm, dry with normal turgor. Normal color with no rashes, no lesions, and no evidence of cellulitis. MS/ Extremity: Pulses equal, no cyanosis. Neurovascular intact. Full, normal range of motion. Neuro: Awake and alert, GCS 15, oriented to person, place, time, and situation. Cranial nerves II-XII grossly intact. Motor strength 5/5 in all extremities. Sensory grossly intact. Cerebellar exam normal. Normal gait. 12:38 Cardiovascular: Rate: tachycardic, 12:38 Psych: Patient extremely anxious without psychosis, SI or HI. Patient does also endorse drinking regularly with last drink being a single drink yesterday. There may be components of alcoholism.. Vital Signs: 11:41 BP 155 / 111; Pulse 112; Resp 18; Temp 97.5; Pulse Ox 100% ; Weight 108.86 kg; Height 5 ll1 ft. 11 in. ; Pain 0/10; 12:45 BP 156 / 84; Pulse 90; Resp 18; Temp 98; Pulse Ox 100% ; kj2 13:47 BP 138 / 84; Pulse 88; Resp 20; Temp 98; Pulse Ox 100% on R/A; kj2 11:41 Body Mass Index 33.47 (108.86 kg, 180.34 cm) ll1 11:41 Pain Scale: Adult ll1 MDM: 11:49 Medical Screening Exam initiated sp3 12:39 Data reviewed: vital signs, nurses notes, old medical records. ED course: 38-year-old sp3 male with anxiety symptoms. I believe patient has had an anxiety attack and is also coupling with potential alcohol related symptoms including withdrawal. Patient is not psychotic, suicidal or having any other somatic neurological episode. Will treat with p.o. antianxiolytic and have advised him to go back to the [facility] get back on psychiatric medications which he acknowledges. Heart rate on my exam is in the 90s and patient is in no acute distress besides being anxious.. 07/25 12:11 Order name: Recheck VS; Complete Time: 12:50 sp3 Administered Medications: 12:57 Drug: LORazepam PO 2 mg PO once Route: PO; kj2 13:48 Follow up: Response: No adverse reaction kj2 Disposition Summary: 07/25/24 12:40 Discharge Ordered Notes: Location: Home sp3 Condition: Stable sp3 Diagnosis - Anxiety disorder, unspecified sp3 Followup: sp3 - With: Private Physician - When: Upon discharge from the Emergency Department - Reason: Continuance of care Discharge Instructions: - Discharge Summary Sheet sp3 - Panic Attack sp3 - Generalized Anxiety Disorder, Adult sp3 Forms: - Medication Reconciliation Form sp3 - Antibiotic Education sp3 - Prescription Opioid Use sp3 - Patient Portal Instructions sp3 - Leadership Thank You Letter sp3 Signatures: Rachel Pacheco RN RN ll1 Pasquale King MD MD sp3 Chante Gregory RN RN kj2
[2024-07-25] MEDS ORDERED: LORAZEPAM 1 MG TABLET ONE (12:52)
[2024-07-26 02:58] VITALS: BP 138/84; TEMP 98; O2SAT 100
== END 2024-07-25 13:48 | disposition home or self-care (01) ==
LOC: ER 11:36
DX: F41.9 Anxiety disorder, unspecified (principal)
CPT/HCPCS: 99283

== ENCOUNTER 2024-07-29 08:57 | Emergency (ER) | payer OTHER ==
[2024-07-29] MEDS ORDERED: DIAZEPAM 5 MG TABLET ONE (09:07)
[2024-07-29 09:32] LABS: Anion Gap 8.7 mEq/L (5.0-15.0); Potassium 3.7 mEq/L (3.5-5.1); Troponin High Sensitivity 3.4 pg/mL (<58.9)
[2024-07-29 09:35] LABS: Absolute Eosinophils 0.1 K/uL (0-0.5); Absolute Lymphocytes (CBC) 1.6 K/uL (0.7-4.9); Absolute Monocytes 0.5 K/uL (0.1-1.3); Absolute Neutrophil 3.2 K/uL (1.8-8.0); Basophils % 0.9 % (0-1.3); Eosinophils % 2.7 % (0-4.4); Hematocrit 43.7 % (39.6-49.0); Hemoglobin 14.8 g/dL (13.6-17.9); Lymphocytes % 28.8 % (15.3-44.8); MCH 31.2 pg (27.0-35.0); MCHC 33.8 g/dL (32.0-36.0); MCV 92.3 fL (80-100); MPV 7.8 fL (7.6-11.3); Monocytes % 9.9 % (3.3-12.3); Neutrophils % 57.7 % (41.7-73.7); Nucleated Red Blood Cells % 0.1 % (0-0); Platelets 291 thou/uL (152-406); RBC Red Blood Cell Count 4.74 M/uL (4.33-5.43); Red Cell Distribution Width 13.1 % (12.1-15.2)
--- NOTE | 2024-07-29 09:52 | RAD REPORT ---
EXAMINATION: ONE VIEW CHEST XR CLINICAL INDICATION: CHEST PAIN TECHNIQUE: Frontal chest projection is submitted. Examination is limited by patient positioning and t echnique. COMPARISON: 07/22/2024 FINDINGS: The lungs are well inflated and clear. The heart is upper limit of normal in size. No displaced fract ures identified. IMPRESSION: No acute intrathoracic abnormalities.
--- NOTE | 2024-07-29 10:03 | EDPHYS ---
Physician Documentation [facility] Name: Anthony Funez Age: 38 yrs Sex: Male : 1985 Arrival Date: 07/29/2024 Time: 08:57 Bed 5 Private MD: ED Physician Robert Tafyoa HPI: 07/29 09:07 This 38 yrs old Male presents to ER via EMS with complaints of Shortness Of rn Breath. 09:07 The patient has shortness of breath at rest. rn 09:09 Onset: The symptoms/episode began/occurred 2 week(s) ago. Duration: The symptoms are rn intermittent. The patient's shortness of breath is aggravated by nothing, is alleviated by nothing. Severity of symptoms: At their worst the symptoms were moderate in the emergency department the symptoms are unchanged. The patient has experienced similar episodes in the past. Patient reports several weeks of intermittent chest pain and shortness of breath, associated with tingling of face and extremities. Has been diagnosed with anxiety and is taking antidepressant at this time. Does not take his medication as prescribed, states takes it intermittently because it makes him sleepy. States seen here 2 visits in the last week for identical symptoms and workup was negative including blood work/EKG and CT.. Historical: - Allergies: 08:59 No Known Allergies; ll1 - Home Meds: 09:01 escitalopram oxalate oral [Active]; ll1 - PMHx: 08:59 Anxiety; Hypercholesterolemia; Hypertensive disorder; fatty liver (Hypertensive ll1 disorder); - Immunization history:: Adult Immunizations up to date. - Infectious Disease History:: Denies. - Social history:: Smoking status: Patient denies any tobacco usage or history of. - Family history:: not pertinent. - Hospitalizations: : No recent hospitalization is reported. ROS: 09:09 Constitutional: Negative for fever, chills, and weight loss, Cardiovascular: Negative rn for palpitations, and edema, Respiratory: Negative for cough, wheezing, and pleuritic chest pain, Abdomen/GI: Negative for abdominal pain, nausea, vomiting, diarrhea, and constipation, MS/Extremity: Negative for injury and deformity, Skin: Negative for injury, rash, and discoloration, Neuro: Negative for headache, weakness, numbness, tingling, and seizure, Exam: 09:09 Constitutional: This is a well developed, well nourished patient who is awake, alert, rn and in no acute distress. Appears anxious, tremulous Cardiovascular: Regular rate and rhythm. No pulse deficits. Respiratory: Mild tachypnea, no retractions, speaking full sentences Abdomen/GI: Soft, non-tender MS/ Extremity: Pulses equal, no cyanosis. Neuro: Awake and alert, GCS 15 09:14 ECG was reviewed by the Attending Physician. rn Vital Signs: 09:00 BP 152 / 94; Pulse 90; Resp 20; Temp 98.3; Pulse Ox 98% on R/A; ll1 09:03 Pulse Ox 98% on R/A; ss 09:17 Weight 108.86 kg; Height 5 ft. 11 in. ; Pain 5/10; ll1 09:56 BP 142 / 91; Pulse 92; Resp 19; Pulse Ox 95% on R/A; ll1 10:14 BP 143 / 98; Pulse 91; Resp 16; Pulse Ox 98% on R/A; iw 09:17 Body Mass Index 33.47 (108.86 kg, 180.34 cm) ll1 09:17 Pain Scale: Adult ll1 MDM: 09:00 Medical Screening Exam initiated rn 09:59 Differential diagnosis: Anxiety Reaction Myocardial Infarction pneumonia, Pneumothorax rn pulmonary edema, Pulmonary Embolism. Data reviewed: vital signs, nurses notes, lab test result(s), EKG, radiologic studies, plain films, and as a result, I will discharge patient. Counseling: I had a detailed discussion with the patient and/or guardian regarding the historical points, exam findings, and any diagnostic results supporting the discharge/admit diagnosis, lab results, radiology results, the need for outpatient follow up, to return to the emergency department if symptoms worsen or persist or if there are any questions or concerns that arise at home. Special discussion: Based on the patient's history, exam, and Dx evaluation, there is no indication for emergent intervention or inpatient Tx. It is understood by the patient/guardian that if the Sx's persist or worsen they need to return immediately for re-evaluation. I discussed with the patient/guardian in detail that at this point there is no indication for admission to the hospital. It is understood, however, that if the symptoms persist or worsen the patient needs to return immediately for re-evaluation. ED course: Negative workup for acute findings. D-dimer negative. Troponin negative. No ischemia on ECG. Chest x-ray images negative for pneumonia or pneumothorax per my interpretation. Third visit in 2 weeks for identical symptoms. Will discharge home with instructions to take anxiety medication more regularly and as prescribed. Return precautions given and understood.. 10:09 ED course: Reviewed previous 2 visits with lab results and CT from a week ago. Had CT rn chest abdomen pelvis that was negative for acute findings.. 07/29 09:01 Order name: Basic Metabolic Panel; Complete Time: 09:36 rn 07/29 09:01 Order name: CBC with Diff; Complete Time: 09:36 rn 07/29 09:01 Order name: NT PRO-BNP; Complete Time: :36 rn 07/29 09:01 Order name: Troponin HS; Complete Time: :36 rn 07/29 09:03 Order name: D-Dimer; Complete Time: 09:40 rn 07/29 09:01 Order name: XRAY Chest (1 view); Complete Time: 09:54 rn 07/29 09:01 Order name: Cardiac monitoring; Complete Time: 09:12 rn 07/29 09:01 Order name: EKG - Nurse/Tech; Complete Time: 09:06 rn 07/29 09:01 Order name: IV Saline Lock; Complete Time: 09:12 rn 07/29 09:01 Order name: Labs collected and sent; Complete Time: 09:11 rn 07/29 09:01 Order name: O2 Per Protocol; Complete Time: 09:03 rn 07/29 09:01 Order name: O2 Sat Monitoring; Complete Time: 09:03 rn EC:14 Rate is 91 beats/min. Rhythm is regular. Right axis deviation noted. QRS is positive in rn lead aVF and negative in lead I. NH interval is normal. QRS interval is normal. QT interval is normal. No Q waves. T waves are Normal. No ST changes noted. Clinical impression: NSR w/ Non-specific ST/T Changes. Interpreted by me. Reviewed by me. Administered Medications: 09:11 Drug: Diazepam PO 5 mg PO once Route: PO; ll1 09:56 Follow up: Response: No adverse reaction; Anxiety unchanged; RASS: Alert and Calm (0) ll1 Disposition Summary: 07/29/24 10:03 Discharge Ordered Notes: Location: Home rn Problem: an ongoing problem rn Symptoms: have improved rn Condition: Stable rn Diagnosis - Chest pain, unspecified rn - Anxiety disorder, unspecified rn Followup: rn - With: Private Physician - When: As needed - Reason: Recheck today's complaints, Re-evaluation by your physician Discharge Instructions: - Discharge Summary Sheet rn - Nonspecific Chest Pain, Adult rn - Managing Anxiety, Adult rn Forms: - Medication Reconciliation Form rn - Antibiotic pattern grader - Prescription Opioid Use rn - Patient Portal Instructions rn - Leadership Thank You Letter rn Signatures: Dispatcher [employer] EDMS Robert Tafoya MD MD rn Lewis, Lynsay, RN RN ll1 Corrections: (The following items were deleted from the chart) 09:01 09:01 Chest Single View+[email or web address] ordered. EDKS EDKS
--- NOTE | 2024-07-29 10:03 | ER ---
Nurse's Notes [facility] Name: Anthony Funez Age: 38 yrs Sex: Male : 1985 Arrival Date: 07/29/2024 Time: 08:57 Bed 5 Private MD: Diagnosis: Chest pain, unspecified;Anxiety disorder, unspecified Presentation: 07/29 09:00 Chief complaint: Patient states: SOB and chest pressure off/on for 2 weeks. Reports ll1 anxiety also. Coronavirus screen: Client denies travel out of the [place] in the last 14 days. At this time, the client does not indicate any symptoms associated with coronavirus-19. Ebola Screen: Patient denies travel to an Ebola-affected area in the 21 days before illness onset. Initial Sepsis Screen: Does the patient meet any 2 criteria? No. Patient's initial sepsis screen is negative. Does the patient have a suspected source of infection? No. Patient's initial sepsis screen is negative. Risk Assessment: Do you want to hurt yourself or someone else? Patient reports no desire to harm self or others. Onset of symptoms was July 15, 2024. 09:00 Method Of Arrival: EMS: [facility] ll1 09:00 Acuity: GLENN 3 ll1 Triage Assessment: 09:01 General: Appears uncomfortable, Behavior is calm, cooperative, appropriate for age. ll1 Pain: Complains of pain in chest Quality of pain is described as pressure. Cardiovascular: Reports chest pain, fatigue, shortness of breath. Respiratory: Reports shortness of breath. 09:17 Respiratory: Onset: The symptoms/episode began/occurred off/on for 2 weeks, the patient ll1 has moderate shortness of breath. Historical: - Allergies: 08:59 No Known Allergies; ll1 - Home Meds: 09:01 escitalopram oxalate oral [Active]; ll1 - PMHx: 08:59 Anxiety; Hypercholesterolemia; Hypertensive disorder; fatty liver (Hypertensive ll1 disorder); - Immunization history:: Adult Immunizations up to date. - Infectious Disease History:: Denies. - Social history:: Smoking status: Patient denies any tobacco usage or history of. - Family history:: not pertinent. - Hospitalizations: : No recent hospitalization is reported. Screenin:12 [facility] ED Fall Risk Assessment (Adult) History of falling in the last 3 months, iw including since admission No falls in past 3 months (0 pts) Confusion or Disorientation No (0 pts) Intoxicated or Sedated No (0 pts) Impaired Gait No (0 pts) Mobility Assist Device Used No (0 pt) Altered Elimination No (0 pt) Score/Fall Risk Level 0 - 2 = Low Risk Oriented to surroundings, Maintained a safe environment. Abuse screen: Denies threats or abuse. Denies injuries from another. Nutritional screening: No deficits noted. Tuberculosis screening: No symptoms or risk factors identified. Assessment: 09:11 General: Appears in no apparent distress. Behavior is calm, cooperative. Neuro: Level iw of Consciousness is awake, alert, obeys commands, Oriented to person, place, time, situation. Cardiovascular: Rhythm is regular. Cardiovascular: Reports chest pain, lightheadedness, shortness of breath. Respiratory: Reports shortness of breath Airway is patent Respiratory effort is even, unlabored, Derm: Skin is intact, is healthy with good turgor. Musculoskeletal: Range of motion: intact in all extremities. 09:57 Reassessment: No changes from previously documented assessment. Patient and/or family ll1 updated on plan of care and expected duration. Pain level reassessed. Patient is alert, oriented x 3, equal unlabored respirations, skin warm/dry/pink. Patient states symptoms have not improved. 10:05 Reassessment: Dr. Tafoya at . 1 Vital Signs: 09:00 BP 152 / 94; Pulse 90; Resp 20; Temp 98.3; Pulse Ox 98% on R/A; ll1 09:03 Pulse Ox 98% on R/A; ss 09:17 Weight 108.86 kg; Height 5 ft. 11 in. ; Pain 5/10; ll1 09:56 BP 142 / 91; Pulse 92; Resp 19; Pulse Ox 95% on R/A; ll1 10:14 BP 143 / 98; Pulse 91; Resp 16; Pulse Ox 98% on R/A; iw 09:17 Body Mass Index 33.47 (108.86 kg, 180.34 cm) ll1 09:17 Pain Scale: Adult ll1 ED Course: 08:59 Patient arrived in ED. 1 08:59 Arm band placed on Patient placed in an exam room, on a stretcher. 1 09:00 Robert Tafoya MD is Attending Physician. rn 09:01 Triage completed. ll1 09:12 Initial lab(s) drawn, by me, sent to lab. Inserted saline lock: 22 gauge in right hand, iw using aseptic technique. Blood collected. Flushed with 10 mL NS. 09:16 Rachel Pacheco, RN is Primary Nurse. ll1 09:17 Patient has correct armband on for positive identification. Bed in low position. ll1 Provided Education on: ER procedures and process. Client placed on continuous cardiac and pulse oximetry monitoring. NIBP monitoring applied. quality assurance monitor chassis on. 09:24 X-ray completed. Portable x-ray completed in exam room. Patient tolerated procedure [facility] well. 09:26 XRAY Chest (1 view) In Process Unspecified. EDMS 10:13 No provider procedures requiring assistance completed. IV discontinued, intact, iw bleeding controlled, No redness/swelling at site. Pressure dressing applied. Administered Medications: 09:11 Drug: Diazepam PO 5 mg PO once Route: PO; 1 09:56 Follow up: Response: No adverse reaction; Anxiety unchanged; RASS: Alert and Calm (0) [facility] Medication: 09:12 VIS not applicable for this client. iw Outcome: 10:03 Discharge ordered by . rn 10:14 Discharged to home ambulatory, iw 10:14 Condition: good 10:14 Discharge instructions given to patient, Instructed on discharge instructions, follow up and referral plans. Demonstrated understanding of instructions, follow-up care, 10:14 Patient left the ED. iw Signatures: Dispatcher [employer] EDMS Lucia Solis [facility] Winnie Avery RN RN Robert Tafoya MD MD rn Blanchard, Shelby, RN RN Rachel Pacheco RN RN [facility]
[2024-07-29 10:51] VITALS: TEMP 98.3
[2024-07-29 10:55] VITALS: BP 143/98; O2SAT 98
--- NOTE | 2024-08-01 13:04 | EKG ---
Test Date: 2024-07-29 Test Time: 09:03:40 Chief Lock Operator: PETAR MEASUREMENT RESULTS: Intervals: Rate: 91 MN: 122 QRSD: 78 QT: 354 QTc: 435 [place]: P: -2 MN: 122 QRS: 98 T: 22 INTERPRETIVE STATEMENTS: Normal sinus rhythm Rightward axis Borderline ECG Compared to ECG 07/22/2024 18:16:09 Right-axis deviation now present Electronically Signed On 08-01-24 13:00:16 RESIDENTIAL SUPPORT SPECIALIST by Colton Epperson
== END 2024-07-29 10:14 | disposition home or self-care (01) ==
LOC: ER 08:57
DX: R07.9 Chest pain, unspecified (principal); F41.9 Anxiety disorder, unspecified; R06.02 Shortness of breath; I10 Essential (primary) hypertension
CPT/HCPCS: 36415; 71045; 80048; 83880; 84484; 85025; 85379; 93005; 99285

== ENCOUNTER 2024-09-06 23:02 | Emergency (ER) | payer OTHER ==
[2024-09-06] MEDS ORDERED: FAMOTIDINE 20 MG/2 ML VIAL IV ONE (23:19)
[2024-09-06] MEDS ORDERED: DIPHENHYDRAMINE 50 MG/ML VIAL ONE (23:19)
[2024-09-06] MEDS ORDERED: KETOROLAC 30 MG/ML INJ ONE (23:19)
[2024-09-06] MEDS ORDERED: ONDANSETRON 4 MG/2 ML VIAL ONE (23:19)
[2024-09-06] MEDS ORDERED: HALOPERIDOL LACT 5 MG/ML INJ ONE (23:19)
[2024-09-06] MEDS ORDERED: NA CHLORIDE 0.9% 1,000 ML ONE (23:20)
[2024-09-06 23:28] LABS: Absolute Basophils 0.1 K/uL (0-0.5); Absolute Lymphocytes (CBC) 2.2 K/uL (0.7-4.9); Absolute Monocytes 0.6 K/uL (0.1-1.3); Absolute Neutrophil 6.7 K/uL (1.8-8.0); Eosinophils % 0.1 % (0-4.4); Hematocrit 46.1 % (39.6-49.0); Hemoglobin 15.9 g/dL (13.6-17.9); MCH 31.4 pg (27.0-35.0); MCHC 34.5 g/dL (32.0-36.0); MPV 7.7 fL (7.6-11.3); Monocytes % 6.1 % (3.3-12.3); Neutrophils % 69.8 % (41.7-73.7); Nucleated Red Blood Cells % 0.1 % (0-0); Platelets 367 thou/uL (152-406); RBC Red Blood Cell Count 5.07 M/uL (4.33-5.43); Red Cell Distribution Width 14.2 % (12.1-15.2)
[2024-09-06] MEDS ORDERED: PANTOPRAZOLE 40 MG INJ ONE (23:38)
[2024-09-06 23:43] LABS: PT Prothrombin Time 13.4 SECONDS (10.0-13.0); Protime INR 1.18
[2024-09-06 23:48] LABS: Albumin 3.5 g/dL (3.4-5.0); Albumin/Globulin Ratio 0.8 (1.1-1.8); Anion Gap 12.6 mEq/L (5.0-15.0); Bilirubin Total 0.3 mg/dL (0.2-1.0); Globulin 4.4 g/dL (2.3-3.5); Potassium 3.6 mEq/L (3.5-5.1); Protein, Total 7.9 g/dL (6.4-8.2)
[2024-09-07] MEDS ORDERED: DIPHENHYDRAMINE 50 MG/ML VIAL ONE (00:25)
[2024-09-07] MEDS ORDERED: METHYLPREDNISOLONE 125 MG INJ ONE (00:25)
--- NOTE | 2024-09-07 01:53 | ER ---
Nurse's Notes [facility] Name: Anthony Funez Age: 38 yrs Sex: Male : 1985 Arrival Date: 09/06/2024 Time: 23:02 Bed 2 Private MD: Diagnosis: Acute Viral gastroenteritis, moderate to severe vomiting, acute non-exudative pharyngitis Presentation: 09/06 23:09 Chief complaint: Patient states: abdominal pain and vomiting since this afternoon with lg3 one episode of blood. Coronavirus screen: Client denies travel out of the [place] in the last 14 days. At this time, the client does not indicate any symptoms associated with coronavirus-19. Ebola Screen: No symptoms or risks identified at this time. Initial Sepsis Screen: Does the patient meet any 2 criteria? No. Patient's initial sepsis screen is negative. Does the patient have a suspected source of infection? No. Patient's initial sepsis screen is negative. Risk Assessment: Do you want to hurt yourself or someone else? Patient reports no desire to harm self or others. Onset of symptoms was September 06, 2024. 23:09 Method Of Arrival: EMS: [facility] lg3 23:09 Acuity: GLENN 3 lg3 Triage Assessment: 23:12 General: Appears in no apparent distress. uncomfortable, Behavior is calm, cooperative, lg3 anxious. Pain: Complains of pain in abdomen Pain does not radiate. Pain currently is 2 out of 10 on a pain scale. EENT: No deficits noted. No signs and/or symptoms were reported regarding the EENT system. Neuro: No deficits noted. Spencer Agitation-Sedation Scale (RASS): 0 - Alert and Calm Level of Consciousness is awake, alert, obeys commands, Oriented to person, place, time, situation. Cardiovascular: No deficits noted. Denies chest pain, shortness of breath, Capillary refill < 3 seconds Clubbing of nail beds is absent JVD is absent Patient's skin is warm and dry. Respiratory: No deficits noted. Airway is patent Respiratory effort is even, unlabored, Respiratory pattern is regular, symmetrical, Breath sounds are clear bilaterally. GI: No deficits noted. Abdomen is round non-distended, obese, Bowel sounds present X 4 quads. Abd is soft and non tender X 4 quads. Reports nausea. : No signs and/or symptoms were reported regarding the genitourinary system. Derm: No deficits noted. No signs and/or symptoms reported regarding the dermatologic system. Skin is intact, is healthy with good turgor, Skin is dry, Skin is normal, Skin temperature is warm. Musculoskeletal: No deficits noted. No signs and/or symptoms reported regarding the musculoskeletal system. Circulation, motion, and sensation intact. Range of motion: intact in all extremities. Historical: - Allergies: 23:12 No Known Allergies; lg3 - Home Meds: 23:12 escitalopram oxalate oral [Active]; lg3 - PMHx: 23:12 Anxiety; fatty liver (Hypertensive disord); Hypercholesterolemia; Hypertensive lg3 disorder; PTSD (Hypertensive disorder); - PSHx: 23:12 None; lg3 - Immunization history:: Adult Immunizations up to date. - Infectious Disease History:: Denies. - Social history:: Smoking status: Patient denies any tobacco usage or history of. Patient uses alcohol, occasionally. Patient/guardian denies using street drugs. - Family history:: not pertinent. Screenin:13 [facility] ED Fall Risk Assessment (Adult) History of falling in the last 3 months, lg3 including since admission No falls in past 3 months (0 pts) Confusion or Disorientation No (0 pts) Intoxicated or Sedated No (0 pts) Impaired Gait No (0 pts) Mobility Assist Device Used No (0 pt) Altered Elimination No (0 pt) Score/Fall Risk Level 0 - 2 = Low Risk Oriented to surroundings, Maintained a safe environment, Educated pt \T\ family on fall prevention, incl call for assistance when getting out of bed, Assessed \T\ reinforced patient's understanding of fall precautions. Abuse screen: Denies threats or abuse. Denies injuries from another. Nutritional screening: No deficits noted. Tuberculosis screening: No symptoms or risk factors identified. Assessment: 23:13 General: see triage assessment. Pain:. GI: Bowel sounds present X 4 quads. Abd is soft lg3 and non tender X 4 quads. 03 00:43 Reassessment: Patient appears in no apparent distress at this time. No changes from lg3 previously documented assessment. Patient and/or family updated on plan of care and expected duration. Pain level reassessed. Patient is alert, oriented x 3, equal unlabored respirations, skin warm/dry/pink. General: Behavior is anxious, fussy. 02:08 Reassessment: Patient appears in no apparent distress at this time. Patient and/or bm8 family updated on plan of care and expected duration. Pain level reassessed. Patient is alert, oriented x 3, equal unlabored respirations, skin warm/dry/pink. pt reports having raw throat from all the vomiting but otherwise pain free Patient states feeling better. Patient states symptoms have improved. Vital Signs: 09/06 23:09 BP 133 / 89; Pulse 101; Resp 16 S; Temp 98.6(O); Pulse Ox 100% on R/A; Weight 110.68 kg lg3 (R); Height 5 ft. 11 in. (R); 09/07 00:43 BP 127 / 92; Pulse 84; Resp 16 S; Pulse Ox 98% on R/A; lg3 02:08 BP 126 / 94; Pulse 89; Resp 17; Temp 98.6; Pulse Ox 98% ; Pain 7/10; bm8 09/06 23:09 Body Mass Index 34.03 (110.68 kg, 180.34 cm) lg3 02:08 Pain Scale: Adult bm8 [place] Coma Score: 02:08 Eye Response: spontaneous(4). Motor Response: obeys commands(6). Verbal Response: bm8 oriented(5). Total: 15. 06:01 Eye Response: spontaneous(4). Motor Response: obeys commands(6). Verbal Response: sp4 oriented(5). Total: 15. ED Course: 09/06 23:05 Patient arrived in ED. lg3 23:05 David Gould MD is Attending Physician. sp4 23:09 Mary De Dios RN is Primary Nurse. lg3 23:12 Triage completed. lg3 23:12 Arm band placed on right wrist. lg3 23:13 Patient has correct armband on for positive identification. Placed in gown. Bed in low lg3 position. Call light in reach. Side rails up X 1. Client placed on continuous cardiac and pulse oximetry monitoring. NIBP monitoring applied. Door closed. Noise minimized. Warm blanket given. Pillow given. 23:13 Maintain EMS IV. Dressing intact. Good blood return noted. Site clean \T\ dry. Gauge \T\ lg 3 site: 20L wrist. 23:15 CBC with Diff Sent. lg3 23:16 CMP Sent. lg3 23:16 Lipase Sent. lg3 23:28 ETOH Level Sent. lg3 23:28 Type And Screen Sent. lg3 23:28 PT-INR Sent. lg3 23:29 CBC with Diff Sent. lg3 23:29 CMP Sent. lg3 23:29 Lipase Sent. lg3 09/07 00:27 CT Abd/Pelvis - IV Contrast Only In Process Unspecified. EDMS 02:08 Provided Education on: post er care. bm8 02:08 No provider procedures requiring assistance completed. IV discontinued, intact, bm8 bleeding controlled, No redness/swelling at site. Pressure dressing applied. Administered Medications: 09/06 23:28 Drug: Haloperidol IVP 2.5 mg/50 mL 2.5 mg IVP once; Place patient on a assembler installer structures lg3 Route: IVP; Site: left wrist; 09/07 00:44 Follow up: Response: No adverse reaction 3 09/06 23:28 Drug: Famotidine IVP 20 mg IVP once; dilute with 10 mL 0.9% NaCl; give over 2 minutes lg3 Route: IVP; Site: left wrist; 09/07 00:44 Follow up: Response: No adverse reaction 3 09/06 23:28 Drug: NS 0.9% IV 1000 ml IV at 1 bolus Per protocol; to be given as a bolus over 60 lg3 minutes Route: IV; Rate: 1 bolus; Site: left wrist; 09/07 00:42 Follow up: Response: No adverse reaction; IV Status: Completed infusion; IV Intake: lg3 1000ml 09/06 23:28 Drug: diphenhydrAMINE IVP 25 mg IVP once Route: IVP; Site: left wrist; lg3 09/07 00:44 Follow up: Response: No adverse reaction 3 09/06 23:29 Drug: TORadol - Ketorolac IVP 15 mg IVP once Route: IVP; Site: left wrist; lg3 09/07 00:43 Follow up: Response: No adverse reaction 3 09/06 23:29 Drug: Ondansetron IVP 4 mg IVP once; over 2 minutes Route: IVP; Site: left wrist; lg3 09/07 00:44 Follow up: Response: No adverse reaction 3 09/06 23:39 Drug: Pantoprazole IVP 80 mg IVP once Route: IVP; Site: left wrist; lg3 03 00:44 Follow up: Response: No adverse reaction lg3 00:42 Drug: MethylPrednisoLONE IVP 125 mg IVP once Route: IVP; Site: left wrist; lg3 00:44 Follow up: Response: No adverse reaction lg3 00:42 Drug: diphenhydrAMINE IVP 25 mg IVP once Route: IVP; Site: left wrist; lg3 00:44 Follow up: Response: No adverse reaction lg3 Medication: 02:08 VIS not applicable for this client. bm8 Intake: 00:42 IV: 1000ml; Total: 1000ml. lg3 Outcome: 01:53 Discharge ordered by . sp4 02:08 Discharged to home ambulatory, bm8 02:08 Condition: improved 02:08 Discharge instructions given to patient, Instructed on discharge instructions, follow up and referral plans. no drinking with medication, no driving heavy equipment, medication usage, safety practices, Demonstrated understanding of instructions, follow-up care, medications, Prescriptions given X 4, 02:10 Patient left the ED. bm8 Signatures: Dispatcher [employer] EDMS Mary De Dios RN RN lg3 David Gould MD MD sp4 Viktor Tyler RN RN bm8 Corrections: (The following items were deleted from the chart) 00:42 09/06 23:12 General: Appears in no apparent distress. uncomfortable, Behavior is calm, lg3 cooperative, lg3
--- NOTE | 2024-09-07 01:54 | EDPHYS ---
Physician Documentation [facility] Name: Anthony Funez Age: 38 yrs Sex: Male : 1985 Arrival Date: 09/06/2024 Time: 23:02 Bed 2 Private MD: ED Physician David Gould HPI: 09/06 23:05 This 38 yrs old Male presents to ER via Unassigned with complaints of sp4 Abdominal Pain. 09/07 06:01 38-year-old male presents with EMS reporting acute abdominal pain associated with sp4 nausea vomiting and throat irritation. Historical: - Allergies: 09/06 23:12 No Known Allergies; lg3 - Home Meds: 23:12 escitalopram oxalate oral [Active]; lg3 - PMHx: 23:12 Anxiety; fatty liver (Hypertensive disord); Hypercholesterolemia; Hypertensive lg3 disorder; PTSD (Hypertensive disorder); - PSHx: 23:12 None; lg3 - Immunization history:: Adult Immunizations up to date. - Infectious Disease History:: Denies. - Social history:: Smoking status: Patient denies any tobacco usage or history of. Patient uses alcohol, occasionally. Patient/guardian denies using street drugs. - Family history:: not pertinent. ROS: 09/07 06:01 Constitutional: Negative for fever, chills, and weight loss, positive nausea vomiting, sp4 positive abdominal pain, positive irritated throat. All other systems are negative, Exam: 06:01 Constitutional: This is a well developed, well nourished patient who is awake, alert, sp4 and in no acute distress. Head/Face: Normocephalic, atraumatic. Extensive scalp psoriasis Eyes: Pupils equal round and reactive to light, extra-ocular motions intact. Lids and lashes normal. Conjunctiva and sclera are not injected. Cornea within normal limits. Periorbital areas with no swelling, redness, or edema. ENT: Nares patent. No nasal discharge, no septal abnormalities noted. Tympanic membranes are normal and external auditory canals are clear. Oropharynx with no redness, swelling, or masses, exudates, or evidence of obstruction, uvula midline. Mucous membranes moist. Neck: Trachea midline, no thyromegaly or masses palpated, and no cervical lymphadenopathy. Supple, full range of motion without nuchal rigidity, or vertebral point tenderness. Chest/axilla: Normal chest wall appearance and motion. Nontender with no deformity. No lesions are appreciated. Cardiovascular: Regular rate and rhythm with a normal S1 and S2. No gallops, murmurs, or rubs. Normal PMI, no JVD. No pulse deficits. Respiratory: Lungs have equal breath sounds bilaterally, clear to auscultation and percussion. No rales, rhonchi or wheezes noted. No increased work of breathing, no retractions or nasal flaring. Abdomen/GI: Soft, with normal bowel sounds. No distension or tympany. No guarding or rebound. No evidence of tenderness throughout. Back: No spinal tenderness. No costovertebral tenderness. Skin: Warm, dry with normal turgor. Normal color with no rashes, no lesions, and no evidence of cellulitis. MS/ Extremity: Pulses equal, no cyanosis. Neurovascular intact. Full, normal range of motion. Neuro: Awake and alert, GCS 15, oriented to person, place, time, and situation. Cranial nerves II-XII grossly intact. Motor strength 5/5 in all extremities. Sensory grossly intact. Psych: Awake, alert, with orientation to person, place and time. Behavior, mood, and affect are within normal limits Vital Signs: 09/06 23:09 BP 133 / 89; Pulse 101; Resp 16 S; Temp 98.6(O); Pulse Ox 100% on R/A; Weight 110.68 kg lg3 (R); Height 5 ft. 11 in. (R); 09/07 00:43 BP 127 / 92; Pulse 84; Resp 16 S; Pulse Ox 98% on R/A; lg3 02:08 BP 126 / 94; Pulse 89; Resp 17; Temp 98.6; Pulse Ox 98% ; Pain 7/10; bm8 09/06 23:09 Body Mass Index 34.03 (110.68 kg, 180.34 cm) lg3 02:08 Pain Scale: Adult bm8 [place] Coma Score: 02:08 Eye Response: spontaneous(4). Motor Response: obeys commands(6). Verbal Response: bm8 oriented(5). Total: 15. 06:01 Eye Response: spontaneous(4). Motor Response: obeys commands(6). Verbal Response: sp4 oriented(5). Total: 15. MDM: 09/06 23:07 Medical Screening Exam initiated sp4 09/07 01:47 ED course: TECHNIQUE: CT of the abdomen and pelvis [with] intravenous contrast. All CT sp4 scans at this facility use dose modulation, iterative reconstruction, and/or weight based dosing when appropriate to reduce radiation dose to as low as reasonably achievable. COMPARISON: CT chest abdomen pelvis 07/22/2024 FINDINGS: Lower thorax: Lung bases are clear Abdomen: Stomach:Within normal limits Liver:No focal lesions. Hepatic steatosis. Enlarged. No intrahepatic ductal distention. Gallbladder:Nondistended Pancreas:Within normal limits Spleen:Within normal limits Right kidney:No hydronephrosis. No focal lesion. Left kidney:No hydronephrosis. Midpole cyst noted. Adrenal glands:Within normal limits Vascular structures:Within normal limits Nodes:No lymphadenopathy by size criteria Pelvis: Small bowel:No significant distention. Appendix:Within normal limits Colon:No distention or acute pericolonic edema. Peritoneum: No free intraperitoneal fluid or air. Bones: No acute bone findings. Bladder: Unremarkable. Reproductive organs: No acute findings. IMPRESSION: 1. No acute abdominopelvic findings. 2. Hepatic steatosis. Hepatomegaly. . 01:52 ED course: TECHNIQUE: CT of the abdomen and pelvis [with] intravenous contrast. All CT sp4 scans at this facility use dose modulation, iterative reconstruction, and/or weight based dosing when appropriate to reduce radiation dose to as low as reasonably achievable. COMPARISON: CT chest abdomen pelvis 07/22/2024 FINDINGS: Lower thorax: Lung bases are clear Abdomen: Stomach:Within normal limits Liver:No focal lesions. Hepatic steatosis. Enlarged. No intrahepatic ductal distention. Gallbladder:Nondistended Pancreas:Within normal limits Spleen:Within normal limits Right kidney:No hydronephrosis. No focal lesion. Left kidney:No hydronephrosis. Midpole cyst noted. Adrenal glands:Within normal limits Vascular structures:Within normal limits Nodes:No lymphadenopathy by size criteria Pelvis: Small bowel:No significant distention. Appendix:Within normal limits Colon:No distention or acute pericolonic edema. Peritoneum: No free intraperitoneal fluid or air. Bones: No acute bone findings. Bladder: Unremarkable. Reproductive organs: No acute findings. IMPRESSION: 1. No acute abdominopelvic findings. 2. Hepatic steatosis. Hepatomegaly. . 06:02 Differential diagnosis: Nonspecific abd pain, gastritis, diverticulitis, viral sp4 gastroenteritis, gastroenteritis. Data reviewed: vital signs, nurses notes, EMS record, old medical records, lab test result(s), radiologic studies, CT scan. Consideration of Admission/Observation Escalation of care including admission/observation considered. ED course: CT today is unremarkable. Except for hepatomegaly. . ED course: Patient will be prescribed symptomatic medications and will advise clear liquid diet for 2 days.. 09/06 23:06 Order name: CBC with Diff; Complete Time: 00:05 sp4 09/06 23:06 Order name: CMP; Complete Time: 00:05 sp4 09/06 23:06 Order name: Lipase; Complete Time: 00:05 sp4 09/06 23:06 Order name: PT-INR; Complete Time: 00:05 sp4 09/06 23:06 Order name: Type And Screen; Complete Time: 01:46 sp4 09/06 23:06 Order name: CT Abd/Pelvis - IV Contrast Only sp4 09/06 23:06 Order name: IV Saline Lock; Complete Time: 23:15 sp4 09/06 23:06 Order name: Labs collected and sent; Complete Time: 23:15 sp4 Administered Medications: 09/06 23:28 Drug: Haloperidol IVP 2.5 mg/50 mL 2.5 mg IVP once; Place patient on a strategic business development lg3 Route: IVP; Site: left wrist; 09/07 00:44 Follow up: Response: No adverse reaction [facility] 09/06 23:28 Drug: Famotidine IVP 20 mg IVP once; dilute with 10 mL 0.9% NaCl; give over 2 minutes lg3 Route: IVP; Site: left wrist; 09/07 00:44 Follow up: Response: No adverse reaction [facility] 09/06 23:28 Drug: NS 0.9% IV 1000 ml IV at 1 bolus Per protocol; to be given as a bolus over 60 lg3 minutes Route: IV; Rate: 1 bolus; Site: left wrist; 09/07 00:42 Follow up: Response: No adverse reaction; IV Status: Completed infusion; IV Intake: lg3 1000ml 09/06 23:28 Drug: diphenhydrAMINE IVP 25 mg IVP once Route: IVP; Site: left wrist; lg3 09/07 00:44 Follow up: Response: No adverse reaction lg3 09/06 23:29 Drug: TORadol - Ketorolac IVP 15 mg IVP once Route: IVP; Site: left wrist; lg3 09/07 00:43 Follow up: Response: No adverse reaction lg3 09/06 23:29 Drug: Ondansetron IVP 4 mg IVP once; over 2 minutes Route: IVP; Site: left wrist; lg3 09/07 00:44 Follow up: Response: No adverse reaction lg3 09/06 23:39 Drug: Pantoprazole IVP 80 mg IVP once Route: IVP; Site: left wrist; lg3 09/07 00:44 Follow up: Response: No adverse reaction lg3 00:42 Drug: MethylPrednisoLONE IVP 125 mg IVP once Route: IVP; Site: left wrist; lg3 00:44 Follow up: Response: No adverse reaction lg3 00:42 Drug: diphenhydrAMINE IVP 25 mg IVP once Route: IVP; Site: left wrist; lg3 00:44 Follow up: Response: No adverse reaction lg3 Disposition Summary: 09/07/24 01:53 Discharge Ordered Notes: Location: Home sp4 Problem: new sp4 Symptoms: have improved sp4 Condition: Stable sp4 Diagnosis - Acute Viral gastroenteritis, moderate to severe vomiting, acute non-exudative sp4 pharyngitis Followup: sp4 - With: Private Physician - When: 7 - 10 days - Reason: Recheck today's complaints Discharge Instructions: - Discharge Summary Sheet sp4 - Viral Gastroenteritis, Adult, [id number] sp4 Forms: - Patient Portal Instructions sp4 Prescriptions: - omeprazole 40 mg Oral capsule,delayed release (e.c.) - dissolve 2 capsule ORAL route every evening for 30 days; 60 capsule; Refills: sp4 0, Product Selection Permitted - Benadryl 25 mg Oral Capsule - take 1 capsule ORAL route every 6 hours As needed; 30 tablet; Refills: 0, sp4 Product Selection Permitted - Ibuprofen 800 mg Oral Tablet - take 1 tablet ORAL route every 8 hours As needed take with food; 30 tablet; sp4 Refills: 0, Product Selection Permitted - ondansetron 8 mg Oral Tablet,disintegrating - take 1 tablet ORAL route every 8 hours PRN nausea; 30 tablet; Refills: 0, sp4 Product Selection Permitted Signatures: Dispatcher [employer] EDMS Mary De Dios RN RN lg3 David Gould MD MD sp4 Corrections: (The following items were deleted from the chart) 09/06 23:07 23:06 CBC+H.LAB.BRZ ordered. EDMS EDMS : 23:06 COMPREHENSIVE METABOLIC PANEL+C.LAB.BRZ ordered. EDMS EDMS 23: 23:06 LIPASE+C.LAB.BRZ ordered. EDMS EDMS : 23:07 Abdomen Pelvis W Con+CT.RAD.BRZ ordered. EDMS EDMS
--- NOTE | 2024-09-07 02:05 | RAD REPORT ---
EXAM DESCRIPTION: Abdomen Pelvis W Contrast RadLex: CT ABDOMEN PELVIS WITH IV CONTRAST CLINICAL HISTORY: 38 years Male; ABD PAIN; IV ONLY Bed Name: 2 TECHNIQUE: CT of the abdomen and pelvis [with] intravenous contrast. All CT scans at this facility use dose modulation, iterative reconstruction, and/or weight based dosi ng when appropriate to reduce radiation dose to as low as reasonably achievable. COMPARISON: CT chest abdomen pelvis 07/22/2024 FINDINGS: Lower thorax: Lung bases are clear Abdomen: Stomach: Within normal limits Liver: No focal lesions. Hepatic steatosis. Enlarged. No intrahepatic ductal distention. Gallbladder: Nondistended Pancreas: Within normal limits Spleen: Within normal limits Right kidney: No hydronephrosis. No focal lesion. Left kidney: No hydronephrosis. Midpole cyst noted. Adrenal glands: Within normal limits Vascular structures: Within normal limits Nodes: No lymphadenopathy by size criteria Pelvis: Small bowel: No significant distention. Appendix: Within normal limits Colon: No distention or acute pericolonic edema. Peritoneum: No free intraperitoneal fluid or air. Bones: No acute bone findings. Bladder: Unremarkable. Reproductive organs: No acute findings. IMPRESSION: 1. No acute abdominopelvic findings. 2. Hepatic steatosis. Hepatomegaly. Electronically signed by: Vesta Almaraz MD 09/07/2024 01:16 AM [facility] Z9 Due to temporary technical issues with the PACS[employer] reporting system, reports are being haydee d by the in-house radiologist without review as a courtesy to ensure prompt reporting the interpreting radiologist is fully responsible for the content of the report. Transcribed Date/Time: 09/07/2024 2:05 AM
[2024-09-07 02:16] VITALS: TEMP 98.6
[2024-09-07 02:17] VITALS: O2SAT 98
[2024-09-07 02:18] VITALS: BP 126/94
== END 2024-09-07 02:10 | disposition home or self-care (01) ==
LOC: ER 23:02
DX: A08.4 Viral intestinal infection, unspecified (principal); J02.9 Acute pharyngitis, unspecified
CPT/HCPCS: 96361; 85025; 36415; 86900; 86850; 85610; 86901; 83690; 80053; 74177; 96375; 96374; 99284; Q9967; J1630; J1200 ×2; J2470; J2919; J2405; J7030

== ENCOUNTER 2024-09-25 18:05 | Emergency (ER) | payer OTHER ==
--- NOTE | 2024-09-25 18:25 | EDPHYS ---
Physician Documentation [facility] Name: Anthony Funez Age: 39 yrs Sex: Male : 1985 Arrival Date: 09/25/2024 Time: 18:05 Bed 8 Private MD: ED Physician Pasquale King HPI: 09/25 18:22 This 39 yrs old Male presents to ER via Unassigned with complaints of anxiety, sp3 alcohol withdrawal. 18:22 39-year-old male with history of anxiety, alcoholism presents to the ED with chief sp3 complaint anxiety and alcohol withdrawal from relapse secondary to attending a wedding some weeks ago. Last drink was early this morning. He states he wants to go to a rehab facility however his [place] physician told him to come to the ED. He denies any pain including headache, chest pain, back pain, shortness breath, abdominal pain, vomiting, diarrhea, rash, bleeding or any other signs or symptoms on ROS at this time.. Historical: - Allergies: 18:25 No Known Allergies; cm10 - PMHx: 18:25 Anxiety; fatty liver (Hypertensive disord); Hypercholesterolemia; Hypertensive cm10 disorder; PTSD (Hypertensive disord); - Immunization history:: Adult Immunizations up to date. - Infectious Disease History:: Denies. - Social history:: Smoking status: Patient denies any tobacco usage or history of. Patient uses alcohol, on a daily basis. 3-5 pints of liquor per day. street drugs, marijuana. ROS: 18:23 Constitutional: Negative for fever, chills, and weight loss, Eyes: Negative for injury, sp3 pain, redness, and discharge, ENT: Negative for injury, pain, and discharge, Neck: Negative for injury, pain, and swelling, Cardiovascular: Negative for chest pain, palpitations, and edema, Respiratory: Negative for shortness of breath, cough, wheezing, and pleuritic chest pain, Abdomen/GI: Negative for abdominal pain, nausea, vomiting, diarrhea, and constipation, Back: Negative for injury and pain, MS/Extremity: Negative for injury and deformity, Skin: Negative for injury, rash, and discoloration, Allergy/Immunology: Negative for hives, rash, and allergies, Endocrine: Negative for neck swelling, polydipsia, polyuria, polyphagia, and marked weight changes, Hematologic/Lymphatic: Negative for swollen nodes, abnormal bleeding, and unusual bruising, 18:23 All other systems are negative, Exam: 18:23 Constitutional: This is a well developed, well nourished patient who is awake, alert, sp3 and in no acute distress. Head/Face: Normocephalic, atraumatic. Eyes: Pupils equal round and reactive to light, extra-ocular motions intact. Lids and lashes normal. Conjunctiva and sclera are non-icteric and not injected. Cornea within normal limits. Periorbital areas with no swelling, redness, or edema. ENT: Nares patent. No nasal discharge, no septal abnormalities noted. External auditory canals are clear. Oropharynx with no redness, swelling, or masses, exudates, or evidence of obstruction, uvula midline. Mucous membranes moist. Neck: Trachea midline, no thyromegaly or masses palpated, and no cervical lymphadenopathy. Supple, full range of motion without nuchal rigidity, or vertebral point tenderness. No Meningismus. Chest/axilla: Normal chest wall appearance and motion. Nontender with no deformity. No lesions are appreciated. Respiratory: Lungs have equal breath sounds bilaterally, clear to auscultation and percussion. No rales, rhonchi or wheezes noted. No increased work of breathing, no retractions or nasal flaring. Abdomen/GI: Soft, non-tender, with normal bowel sounds. No distension or tympany. No guarding or rebound. No evidence of tenderness throughout. Back: No spinal tenderness. No costovertebral tenderness. Full range of motion. Skin: Warm, dry with normal turgor. Normal color with no rashes, no lesions, and no evidence of cellulitis. MS/ Extremity: Pulses equal, no cyanosis. Neurovascular intact. Full, normal range of motion. Neuro: Awake and alert, GCS 15, oriented to person, place, time, and situation. Cranial nerves II-XII grossly intact. Motor strength 5/5 in all extremities. Sensory grossly intact. Cerebellar exam normal. Normal gait. 18:23 Cardiovascular: Rate: tachycardic, 18:23 Psych: Patient mild alcohol withdrawal. Heart rate between 105 and 110.. Vital Signs: 18:15 BP 127 / 86; Pulse 106; Resp 15; Temp 98.5; Pulse Ox 94% ; Weight 110.22 kg; Height 5 cm10 ft. 11 in. ; Pain 0/10; 18:30 BP 117 / 85; Pulse 105; Resp 16; Pulse Ox 97% ; db 18:15 Body Mass Index 33.89 (110.22 kg, 180.34 cm) cm10 18:15 Pain Scale: Adult cm10 MDM: 18:13 Medical Screening Exam initiated sp3 18:24 Data reviewed: vital signs, nurses notes. ED course: Alcohol withdrawal mild in nature. sp3 I am not highly suspicious of any other process including infection, sepsis, shock, DVT, or any other critical process. Will administer 2 mg Ativan IM and Librium 50 mg p.o. Patient's is driving. He states he will try and get to a rehab facility in [place].. Administered Medications: 18:28 Drug: LORazepam IM 2 mg IM once Route: IM; Site: right deltoid; db 18:50 Follow up: Response: No adverse reaction; Anxiety decreased db 18:35 Drug: Librium - chlordiazePOXIDE PO 50 mg PO once Route: PO; db 18:50 Follow up: Response: No adverse reaction db Disposition Summary: 09/25/24 18:25 Discharge Ordered Notes: Location: Home sp3 Condition: Stable sp3 Diagnosis - Alcohol dependence with withdrawal, uncomplicated sp3 Followup: sp3 - With: Private Physician - When: Upon discharge from the Emergency Department - Reason: Continuance of care Discharge Instructions: - Discharge Summary Sheet sp3 - Finding Treatment for Addiction sp3 - Alcohol Withdrawal Syndrome sp3 Forms: - Medication Reconciliation Form sp3 - Antibiotic Education sp3 - Prescription Opioid Use sp3 - Patient Portal Instructions sp3 - Leadership Thank You Letter sp3 Signatures: Pasquale King MD MD sp3 Charlee Eubanks, RN RN db Eileen Guerrero, RN RN cm10
--- NOTE | 2024-09-25 18:25 | ER ---
Nurse's Notes [facility] Name: Anthony Funez Age: 39 yrs Sex: Male : 1985 Arrival Date: 09/25/2024 Time: 18:05 Bed 8 Private MD: Diagnosis: Alcohol dependence with withdrawal, uncomplicated Presentation: 09/25 18:15 Chief complaint: Patient states: Presenting to the ER for ETOH detox. Pt states that he cm10 [facility]. Reports drinking 3-5 pints of liquor daily. Pt states last drink was this morning. Coronavirus screen: Client denies travel out of the [place] in the last 14 days. Ebola Screen: Patient denies travel to an Ebola-affected area in the 21 days before illness onset. Initial Sepsis Screen: Does the patient meet any 2 criteria? HR > 90 bpm. No. Patient's initial sepsis screen is negative. Does the patient have a suspected source of infection? No. Patient's initial sepsis screen is negative. Risk Assessment: Do you want to hurt yourself or someone else? Patient reports no desire to harm self or others. Onset of symptoms was September 25, 2024. 18:15 Method Of Arrival: Ambulatory cm10 18:15 Acuity: GLENN 3 cm10 Triage Assessment: 18:15 General: Appears in no apparent distress. comfortable, Behavior is calm, cooperative. cm10 18:15 Pain: Denies pain. Neuro: No deficits noted. Level of Consciousness is awake, alert, cm10 obeys commands, Oriented to person, place, time, situation, Appropriate for age. Respiratory: No deficits noted. Airway is patent Respiratory effort is even, unlabored, Respiratory pattern is regular, symmetrical. Historical: - Allergies: 18:25 No Known Allergies; cm10 - PMHx: 18:25 Anxiety; fatty liver (Hypertensive disord); Hypercholesterolemia; Hypertensive cm10 disorder; PTSD (Hypertensive disord); - Immunization history:: Adult Immunizations up to date. - Infectious Disease History:: Denies. - Social history:: Smoking status: Patient denies any tobacco usage or history of. Patient uses alcohol, on a daily basis. 3-5 pints of liquor per day. street drugs, marijuana. Screenin:51 [facility] ED Fall Risk Assessment (Adult) History of falling in the last 3 months, db including since admission No falls in past 3 months (0 pts) Confusion or Disorientation No (0 pts) Intoxicated or Sedated No (0 pts) Impaired Gait No (0 pts) Mobility Assist Device Used No (0 pt) Altered Elimination No (0 pt) Score/Fall Risk Level 0 - 2 = Low Risk Oriented to surroundings, Maintained a safe environment. Abuse screen: Denies threats or abuse. Denies injuries from another. Nutritional screening: No deficits noted. Tuberculosis screening: No symptoms or risk factors identified. Assessment: 18:51 Reassessment: Patient appears in no apparent distress at this time. Patient and/or db family updated on plan of care and expected duration. Pain level reassessed. Patient is alert, oriented x 3, equal unlabored respirations, skin warm/dry/pink. Reassessment: Patient states feeling better. General: Appears in no apparent distress. comfortable, Behavior is calm, cooperative. Vital Signs: 18:15 BP 127 / 86; Pulse 106; Resp 15; Temp 98.5; Pulse Ox 94% ; Weight 110.22 kg; Height 5 cm10 ft. 11 in. ; Pain 0/10; 18:30 BP 117 / 85; Pulse 105; Resp 16; Pulse Ox 97% ; db 18:15 Body Mass Index 33.89 (110.22 kg, 180.34 cm) cm10 18:15 Pain Scale: Adult cm10 ED Course: 18:09 Patient arrived in ED. cm10 18:11 Pasquale King MD is Attending Physician. sp3 18:15 Arm band placed on right wrist. Patient placed in an exam room, on a stretcher. cm10 18:25 Triage completed. cm10 18:25 Charlee Eubanks, CHERELLE is Primary Nurse. db 18:51 Patient has correct armband on for positive identification. Bed in low position. Call db light in reach. Side rails up X 1. Provided Education on: DISCHARGE AND [facility]. Pulse ox on. NIBP on. Pillow given. 18:51 No provider procedures requiring assistance completed. Patient did not have IV access db during this emergency room visit. Administered Medications: 18:28 Drug: LORazepam IM 2 mg IM once Route: IM; Site: right deltoid; db 18:50 Follow up: Response: No adverse reaction; Anxiety decreased db 18:35 Drug: Librium - chlordiazePOXIDE PO 50 mg PO once Route: PO; db 18:50 Follow up: Response: No adverse reaction db Medication: 18:51 VIS not applicable for this client. db Outcome: 18:25 Discharge ordered by . sp3 18:51 Discharged to home ambulatory, db 18:51 Condition: stable 18:51 Discharge instructions given to patient, Instructed on discharge instructions, follow up and referral plans. 18:52 Patient left the ED. db Signatures: Pasquale King MD MD sp3 Charlee Eubanks, RN RN db Eileen Guerrero RN RN cm10
[2024-09-25] MEDS ORDERED: chlordiazePOXIDE HCl 25 MG CAP ONE (18:28)
[2024-09-25] MEDS ORDERED: LORazepam 2 MG/ML VIAL ONE (18:28)
[2024-09-25 23:56] VITALS: TEMP 98.5
[2024-09-25 23:58] VITALS: BP 117/85; O2SAT 97
== END 2024-09-25 18:52 | disposition home or self-care (01) ==
LOC: ER 18:05
DX: F10.239 Alcohol dependence with withdrawal, unspecified (principal); F41.9 Anxiety disorder, unspecified; I10 Essential (primary) hypertension
CPT/HCPCS: 96372; 99284